=== PATIENT | male | born 1940 | race Caucasian/White ===

== ENCOUNTER → 2023-10-09 12:49 | Outpatient (REF) | payer OTHER, SELFPAY | LOC: HWRAD 12:49 | PROVIDERS: ATTENDING PHYSICIAN Family Medicine | DX: R05.3 Chronic cough (principal) | CPT/HCPCS: 71046 ==

== ENCOUNTER 2023-11-01 21:06 | Inpatient (IN) | payer OTHER, SELFPAY ==
[2023-11-01] VITALS (10 sets, daily range): BP systolic 127–207; BP diastolic 76–131; BMI 19.4
[2023-11-01 16:00] LABS: Glucose - Point of Care 177 mg/dl (70-99)
--- NOTE | 2023-11-01 16:22 | ED.GENMED ---
History of Present Illness
General
Chief Complaint: Weakness
Source: patient, family and ambulance crew
Exam Limitations: none
Time Seen by Provider: 11/01/23 16:03
Nursing documentation reviewed up to this point in time: agreed with
History of Present Illness
History of Present Illness:
83-year-old male with past medical history of hypertension kidney disease, diabetes presenting to the emergency department today with concerns of an unwitnessed fall earlier today. He claims that he may have lost his balance fell to the ground
denies any specific trauma unable to get up and called EMS. They found to have his sugar level in the 30s was given glucagon and oral glucose with improving sugar levels to the 130s. At this point he claims he has been somewhat fatigue over the
last few days denies any specific symptoms. Specifically denies any chest pain shortness of breath nausea vomiting focal numbness weakness. He claims that he has been eating less than usual
Past History
Past History
ED Past Medical History: HTN, Hypercholesterolemia and NIDDM
ED Past Surgical History: Cardiac
Social History
Tobacco: Non-smoker
Alcohol: None
Drug: None
Personal:
Living: with family
Employment: Retired
Family History
Family History: Other (Noncontributory)
Review of Systems
Review of Systems
Allergies reviewed?: Yes
All Other Systems: ROS reviewed and negative except as documented in HPI and ROS
Phy Exam
Physical Exam
Physical Exam:
GENERAL: Alert , in no apparent distress
EYE: pupils equal and reactive
NECK: Supple, no significant adenopathy.
ENT: o/p clr, mmm.
CARDIAC: Regular rate and rhythm .
LUNGS: Clear breath sounds bilaterally, no acute respiratory distress, no wheezes/rales/rhonchi
ABDOMEN: Soft, without focal tenderness, no r/g, no cvat
NEUROLOGICAL: Alert and oriented, no focal neuro deficits
SKIN: Warm and dry, skin intact.
MUSCULOSKELETAL: No edema, well perfused.
PSYCH: Normal and appropriate interaction.
Course
Orders/Labs/Results
Orders:
Orders
11/01/23 16:04
EKG [Electrocardiogram (*1)] Urgent
Reason for Study: Fatigue / Weakness
EKG- Treatment ONCE
11/01/23 16:08
CT Head W/o Iv Contrast Urgent
Comment:
Reason For Exam: fall
11/01/23 16:09
CBC/With Diff [Complete Blood Count/With Diff] Urgent
Lactic Acid Urgent
11/01/23 16:18
Urinalysis Reflex To Culture Urgent
Date Specimen was Collected: 11/01/23
Time Specimen was Collected: 16:16
Urine Microscopic Reflex Cult Urgent
Chest [CR Chest - 2 Views ] Urgent
Comment:
Reason For Exam: cough
11/01/23 17:24
Comprehensive Metabolic Panel Urgent
Creatine Phosphokinase Urgent
TSH Reflex To Free T4 Urgent
Troponin I Urgent
Vitamin D, 25-Oh Urgent
11/01/23 17:54
EKG [Electrocardiogram (*1)] Urgent
Reason for Study: Fatigue / Weakness
EKG- Treatment ONCE
Glucose Urgent
11/01/23 18:00
Dextrose 5%/0.9%Sodchl 1000 ml [D5/0.9% Sodium Chloride] 1,000 ml IV 1,000 mls/hr
11/01/23 18:03
Add On- LAB Urgent
Tests Added?: parathyroid hormone, vitamin d, ionized Calcium
11/01/23 19:00
Pamidronate Disodium [Aredia] 30 mg 0.9% Sodium Chloride 250 ml [Nss] 250 ml IV ONCE
Abnormal Lab Results
11/01/23 11/01/23 11/01/23
15:59 16:09 16:18
WBC 16.4 H 10^3/uL
(4.8-10.8)
RDW 15.2 H %
(11.5-14.5)
Plt Count 574 H 10^3/uL
(130-400)
Abs Immat Gran (auto) 0.2 H 10^3/uL
(0-0.05)
Absolute Neuts (auto) 14.4 H 10^3/uL
(1.4-6.5)
Absolute Lymphs (auto) 0.6 L 10^3/uL
(1.2-3.4)
Absolute Monos (auto) 1.3 H 10^3/uL
(0.1-0.6)
Immature Gran % 1.0 H %
(0-0.5)
Neutrophils % 87.5 H %
(42.2-75.2)
Lymphocytes % 3.3 L %
(20.5-51.1)
BUN
Creatinine
Calcium
Total Bilirubin
AST
ALT
Creatine Kinase
Albumin
Ur Occult Blood Reflex 3+ A
(Negative)
Urine RBC 26-30 A /HPF
(0-2)
Urine Albumin (Reflex) 1+ A
(Neg - Trace)
POC Glucose 177 H mg/dl
(70-99)
24
17:24
WBC
RDW
Plt Count
Abs Immat Gran (auto)
Absolute Neuts (auto)
Absolute Lymphs (auto)
Absolute Monos (auto)
Immature Gran %
Neutrophils %
Lymphocytes %
BUN 53 H mg/dl
(9-20)
Creatinine 1.8 H mg/dL
(0.7-1.3)
Calcium 15.2 H* mg/dl
(8.4-10.2)
Total Bilirubin 1.4 H mg/dl
(0.2-1.3)
AST 93 H U/L
(17-59)
ALT 52 H U/L
(0-50)
Creatine Kinase 252 H U/L
(55-170)
Albumin 3.4 L g/dl
(3.5-5.0)
Ur Occult Blood Reflex
Urine RBC
Urine Albumin (Reflex)
POC Glucose
11/01/23 16:09
Vital Signs
Initial and Last Documented VS:
Initial Vital Signs
Resp Pulse Ox
14 97
11/01/23 15:59 11/01/23 15:59
Last Documented Vital Signs
Temp Pulse Resp BP Pulse Ox
96.5 F L 56 20 184/76 96
11/01/23 16:06 11/01/23 18:15 11/01/23 18:15 11/01/23 18:08 11/01/23 18:15
MDM/Problems Addressed
MDM/Problems Addressed:
84-year-old male presenting to the emergency department today with concerns of fall in our prior to arrival found to have a low sugar level at time of EMS arrival and was given sugar with improving numbers. Upon arrival here sugar level in the
170s. Patient denies any specific concerns at this time other than fatigue and weakness. Labs resulting with elevated white blood cell count additionally significantly elevated calcium level 15.2 creatinine is slightly above baseline 1.8 and BUN
of 53. Patient started on fluids to help manage the hypercalcemia Case was also discussed with nephrology that recommended taking pamidronate. Otherwise patient will be admitted for further monitoring and assessment.
*Critical Care Note
Total Time (30-74mins, 75-104mins- exclusive of procedures): Not Applicable
ED Attending Note
-
Portions of this chart may have been created with voice recognition software.� Occasional wrong word or��sound alike� substitutions may have occurred due to the inherent limitations of voice recognition software.
Discharge Plan
Departure
Patient Disposition: Admit
Date of Disposition: 11/01/23
Time of Disposition: 18:33
Admit to: Telemetry
Admit to doctor: Yasminey
Presentation/result/management discussed w/ accepting MD/DO: Hospitalist
Patient with high blood pressure during this ER visit?: No
Condition: Good
Covid-19: Not Applicable
Discharge Problem:
Hypercalcemia
Prescriptions:
No Action
atorvastatin 80 MG tablet
80 mg PO DAILY
glipizide 5 MG tablet
5 mg PO DAILY
ezetimibe 10 MG tablet
10 mg PO DAILY
nifedipine 90 MG tablet extended release
90 mg PO DAILY
atenolol [Tenormin] 100 MG tablet
100 mg PO DAILY
aspirin 81 MG tablet,delayed release (DR/EC)
81 mg PO DAILY
multivitamin with folic acid [Tab-A-Inga] 1 TABLET tablet
1 tab PO DAILY
losartan [Cozaar] 100 MG tablet
100 mg PO DAILY
PreserVision AREDS 1 CAP capsule
2 cap PO DAILY
cyanocobalamin (vitamin B-12) 1,000 MCG tablet
1,000 mcg PO DAILY
pantoprazole 40 MG tablet,delayed release (DR/EC)
40 mg PO DAILY
Referrals:
Debbie Jorge MD [Family Provider] -
Interventions
Interventions:
*Risk Screen - Suicide Last Done: 11/01/23 16:28
*General Assessment Last Done: 11/01/23 16:28
*Neglect/Abuse Screening Last Done: 11/01/23 16:28
ED- Cardiac Assessment Last Done: 11/01/23 16:24
ED- Neurological Assessment Last Done: 11/01/23 16:24
ED- Pulmonary Assessment Last Done: 11/01/23 16:30
Discharge Date and Time
Print Language: SERBIAN
[2023-11-01 16:25] LABS: % Basophils 0.4 % (0-2); % Eosinophils 0.2 % (0-6); % Lymphocytes 3.3 % (20.5-51.1); % Monocytes 7.6 % (1.7-9.3); % Neutrophils 87.5 % (42.2-75.2); Absolute Basophils 0.1 10^3/uL (0-0.2); Absolute Immature Granulocytes 0.2 10^3/uL (0-0.05); Absolute Lymphocytes 0.6 10^3/uL (1.2-3.4); Absolute Monocytes 1.3 10^3/uL (0.1-0.6); Absolute Neutrophils 14.4 10^3/uL (1.4-6.5); Hematocrit 48.6 % (39.0-52.0); Mean Corpuscular Hgb 28.1 pg (27.0-31.0); Mean Corpuscular Volume 80.3 fL (80.0-94.0); Mean Platelet Volume 10.4 fL (7.4-10.4); Nucleated Red Blood Cells % 0 % (-); Platelet Count 574 10^3/uL (130-400); Red Blood Cell Count 6.05 10^6/uL (4.70-6.10); Red Cell Dist. Width 15.2 % (11.5-14.5); White Blood Cell Count 16.4 10^3/uL (4.8-10.8)
[2023-11-01 16:26] LABS: Urine Albumin 1+ (Neg - Trace); Urine Bilirubin Negative (Negative); Urine Character Clear (Clear); Urine Color Yellow; Urine Glucose Negative (Negative); Urine Ketone Negative (Negative); Urine Leukocyte Negative (Negative); Urine Nitrite Negative (Negative); Urine Occult Blood 3+ (Negative); Urine Urobilinogen Negative (Neg - 1+)
[2023-11-01 16:37] LABS: Lactic Acid 1.9 mmol/L (0.7-2.0)
[2023-11-01 17:17] LABS: Urine Red Blood Cell 26-30 /HPF (0-2); Urine White Cell 0-2 /HPF (0-5)
[2023-11-01 17:49] LABS: ALT (SGPT) 52 U/L (0-50); AST (SGOT) 93 U/L (17-59); Albumin 3.4 g/dl (3.5-5.0); Alkaline Phosphatase 89 U/L (38-126); Blood Urea Nitrogen 53 mg/dl (9-20); Carbon Dioxide 26 mmol/L (22-30); Chloride 99 mmol/L (98-107); Creatine Phosphokinase 252 U/L (55-170); Glucose 72 mg/dl (70-99); Potassium 4.1 mmol/L (3.5-5.1); Sodium 136 mmol/L (135-145); Total Bilirubin 1.4 mg/dl (0.2-1.3); Total Protein 7.6 g/dl (6.3-8.2); eGFR 37.12
[2023-11-01 17:57] LABS: Troponin I 0.033 ng/ml
[2023-11-01 17:58] LABS: Calcium 15.2 mg/dl (8.4-10.2)
[2023-11-01 17:59] LABS: Glucose - Point of Care 72 mg/dl (70-99)
[2023-11-01] MEDS: D5/0.9% SODIUM CHLORIDE 1000 IV ×2 (18:06→23:15)
[2023-11-01 18:17] LABS: TSH Reflex To Free T4 0.96 uIU/ml (0.47-4.68)
[2023-11-01 18:51] LABS: Vitamin D, 25-OH*** 50.4 ng/mL (30-80)
[2023-11-01] MEDS: AREDIA 260 MG IV (18:57)
--- NOTE | 2023-11-01 19:56 | HPS.HSE ---
Family Physician
-
Family Physician: Debbie Jorge
Chief Complaint
-
Hypoglycemia
History of Present Illness
This is a 83-year-old male who has a past medical history that is significant for hypertension, hyperlipidemia, type 2 diabetes, CKD stage IV, reflux with Sweeney's esophagus and a history of GI bleeding who presents to the emergency department with
a hypoglycemic episode.
Patient comes from home where he lives by himself independently. At baseline the patient is mobile and can carry on activities of daily living. The daughter reports that she saw him last about 1/2 weeks ago. At that time was complaining of
feeling tired and having some trouble with breathing. It also reported that about 3 months ago was found to be hypercalcemic. He had repeat blood testing which showed persistent hypercalcemia. No medication changes at that time. The patient was
supposed to follow-up with ENT which is pending. However the patient himself reported that over the last 1 week he has had reduced appetite and intake is about half or less of his usual. He denies any diarrhea nausea or vomiting. He denies any
abdominal pain. He reports that he is taking his medications as usual which includes his glipizide despite reduced p.o. intake. Patient apparently had a fall today and was brought to the emergency department was found to be hypoglycemic to a blood
glucose of 30.
In the ED was hypertensive to 180s over 90. Temperature was 98.5, heart rate was 56. ECG shows sinus bradycardia with a 4 degree AV block which is no change from prior. Labs are notable for a white count of 16, hemoglobin of 17 platelet count of
574. Chemistries remarkable for a BUN of 57 creatinine of 1.8. Initial glucose was 30 with repeat at 72. Troponin was negative. TSH was within normal limits. CK was slightly elevated at 252. CT of the head was within normal limits. Chest
x-ray shows no acute infiltrates.
Medical History
Past Medical History
Past Medical History: Reports GERD, HTN, Hypercholesterolemia, NIDDM and Renal Failure
Additional Past Medical History:
AI s/p AVR
Past Surgical History: Reports Cardiac (AVR)
Social History
Tobacco: Non-smoker
Alcohol: Daily (1 can of beer daily)
Drug: None
Personal:
Living: Alone
Employment: Retired
Family History
Family History: Not pertinent
Allergies / Home Medications
Allergies reflects when Allergies were last updated in [facility].
Home Medications with original date entered in [facility]
Allergy/Medication List:
Allergies
Allergy/AdvReac Type Severity Reaction Status Date / Time
No Known Allergies Allergy Verified 11/01/23 17:06
Home Medications
atorvastatin 80 mg tablet 80 mg PO DAILY High cholesterol 07/08/18
ezetimibe 10 mg tablet 10 mg PO DAILY High cholesterol 07/08/18
glipizide 5 mg tablet 5 mg PO DAILY Diabetes 07/08/18
aspirin 81 mg tablet,delayed release 81 mg PO DAILY Blood clot prevention/tx 12/24/18
atenolol 100 mg tablet (Tenormin) 100 mg PO DAILY Blood pressure 12/24/18
multivitamin with folic acid 400 mcg tablet (Tab-A-Inga) 1 tab PO DAILY Supplement 12/24/18
nifedipine 90 mg tablet,extended release 90 mg PO DAILY Blood pressure 12/24/18
losartan 100 mg tablet (Cozaar) 100 mg PO DAILY Blood pressure 06/28/20
vitamins A,C,G-iipn-iiqyhi 4,296 mcg-226 mg-90 mg capsule (PreserVision AREDS) 2 cap PO DAILY Supplement 06/28/20
cyanocobalamin (vitamin B-12) 1,000 mcg tablet 1,000 mcg PO DAILY Supplement 06/29/20
pantoprazole 40 mg tablet,delayed release 40 mg PO DAILY Gastrointestinal issue 06/29/20
Review of Systems
-
History Source: Patient and Family
Constitutional: Reports Weight Loss and Other (loss of appetite)
EENT: Reports No Symptoms
Respiratory: Reports No Symptoms
Cardiac: Reports No Symptoms
Abdomen/GI: Reports No Symptoms
: Reports No Symptoms
Musculoskeletal: Reports No Symptoms
Skin: Reports No Symptoms
Neurological: Reports Weakness
Endocrine: Reports No Symptoms
Hematologic/Lymphatic: Reports No Symptoms
Psych: Reports No Symptoms
Physical Exam
Vital Signs
Vital Signs
Temp Pulse Resp BP Pulse Ox
96.5 F L 56 20 184/76 96
11/01/23 16:06 11/01/23 18:15 11/01/23 18:15 11/01/23 18:08 11/01/23 18:15
Physical Exam
General: No Apparent Distress and Poor Appetite
HEENT: NormoCephalic, Anicteric, Atraumatic and PERRLA
Respiratory: Clear
Cardiac: S1/S2, Regular Rhythm and Bradycardia
Breast: Deferred by me
GI: Soft, Non Tender, Non Distended and Normal Bowel Sounds
Rectal: Deferred by Provider
Genito-urinary: Deferred by me
Musculoskeletal: No Clubbing, No Cyanosis and No Edema
Skin: Warm
Neuro: AO x 3
Hematologic/Lymphatic: No Lymphadenopathy
Psych: Calm
Laboratory Results
-
11/01/23 16:09
Laboratory Results
Lactic Acid 1.9 mmol/L (0.7-2.0) 11/01/23 16:09
Total Bilirubin 1.4 mg/dl (0.2-1.3) H 11/01/23 17:24
AST 93 U/L (17-59) H 11/01/23 17:24
ALT 52 U/L (0-50) H 11/01/23 17:24
Alkaline Phosphatase 89 U/L (38-126) 11/01/23 17:24
Troponin I 0.033 ng/ml 11/01/23 17:24
Data Reviewed
-
Diagnostic Radiology: Image Personally Visualized and interpreted
CT Scan: Report Reviewed by me
Medical Tests (Nuc Med, Echo, EKG etc): Image Personally Visualized and interpreted
Lab Data: Labs Reviewed by me
Old Records: Reviewed
Impression/Plan
-
IMPRESSION:
83-year-old male with multiple comorbidity Kd,, diabetes who comes in with decreased appetite, fatigue and a fall and found to be hypoglycemic and hypocalcemic. No injury related to the fall. Patient alert but had dull sensorium.
Glucose was 30 initially.
PLAN:
1. Hypoglycemia/DMII - Patient on glipizide with decrease po intake and weight loss. Suspect medication induced hypoglycemia in setting of dietary changes.
- holding antiglycemics for now
- fingerstick glucose q 6 hours
- iv fluids with d5 NS till bg > 100, then change to NS
- check a1c
2. Hypercalcemia - Presumably symptomatic hypercalcemia with corrected Ca > 16. He is weak (could be from hypoglycemia) and not eating but denies abdominal pain. Denies kidney stones despite microscopic hematuria. Hypercalcemia first detected 3
months ago so unlikey just due to dehydration. Cr 1.8, higher than prior levels (1.2 in 2020 though fluctuates). Hyper-para vs MM
- IV NS at 100 ml/hr for now
- pamidronate per renal
- calcitonin if calcium rises
- check vit d, pth and pth-rp,
- spep/upep
- renal consulted
3. LESVIA on CKD - pre renal vs mm vs hypercalcemia. Significantly dehydrated. Microscopic hematuria on u/a with 1+ albuminuria
- IV fluids as above
- correct hypercalcemia
- renal u/s
- renal proteinuria quant
3. Hypertension - Uncontrolled hypertension on nifedipine/losartan and atenolol
- change atenolol to bisoprolol for greate bp effect without the corresponding meg
- continue nifedipine and losartan for now
- prn labetolol for SBP > 190
4. Hematuria - Suspect possibly kidney stones but denies symptoms. Cannot rule out lower etiology
- renal u/s also given LESVIA
- repeat u/a with correction of hypercalcemia
DVT PPX - heparin sq
Code Status - Full
[2023-11-01 20:32] LABS: Glucose - Point of Care 94 mg/dl (70-99)
--- NOTE | 2023-11-01 20:37 | W.CON.NEPH ---
Consultation
-
Date/Time Consultation Requested: 11/01/23 1800
Date/Time Consultation Performed: 11/01/232029
Requesting Provider: Dr. Steel
Performing Provider: Dr. Bradshaw
Reason for Consultation: LESVIA, hypercalcemia
Medical History
-
Chief Complaint: fall
History of Present Illness:
This is an 83-year-old gentleman with hypertension typically treated with a multidrug regimen, diabetes mellitus type 2 on oral medications as well as TAVR. For the last few weeks he has had poor appetite as well as as limited intake. He typically
only eats 1 meal per day and does not drink much fluid. Apparently this has worsened over that timeframe. There is no indication as to why his appetite worsened. He denies any issues with bowels or bladder. He does report that he had fallen
several times in the last past few weeks, mostly due to imbalance. He denies any lightheadedness. He has had no issues with his medications and has been compliant with them. He has seen his primary care physician and had complained of some
hoarseness and an x-ray did not disclose any abnormalities. His last meal was last night which consisted of 4 biscuits and a beer by his report. He has only had about 16 ounces of fluid today so far. This morning he had spoken with his daughter "Vandana"Pam and had apparently told her that he had fallen. She had then called 911 and that coming to check on him. He was then brought to the emergency room. Here he had blood work performed which had shown significant hemoconcentration with
hypercalcemia greater than 15 as well as acute kidney injury with a creatinine of 1.5.
Past Medical History
Cholecystectomy, Sweeney's esophagus, reflux, hypertension, hyperlipidemia, CKD 3A, Diazemuls type II, aortic stenosis status post TAVR, macular degeneration, cataract extraction, laser eye surgery
Social History
Tobacco: Former Smoker
Alcohol: Occasional
Family History
Family History: Not Pertinent
Allergies / Home Medications
Allergy/AdvReac Type Severity Reaction Status Date / Time
No Known Allergies Allergy Verified 11/01/23 17:06
�Medication �Instructions �Recorded �Confirmed �Type
atorvastatin 80 mg tablet 80 mg PO DAILY High cholesterol 07/08/18 11/01/23 History
ezetimibe 10 mg tablet 10 mg PO DAILY High cholesterol 07/08/18 11/01/23 History
glipizide 5 mg tablet 5 mg PO DAILY Diabetes 07/08/18 11/01/23 History
aspirin 81 mg tablet,delayed 81 mg PO DAILY Blood clot 12/24/18 11/01/23 History
release prevention/tx
atenolol 100 mg tablet (Tenormin) 100 mg PO DAILY Blood pressure 12/24/18 11/01/23 History
multivitamin with folic acid 400 1 tab PO DAILY Supplement 12/24/18 11/01/23 History
mcg tablet (Tab-A-Inga)
nifedipine 90 mg tablet,extended 90 mg PO DAILY Blood pressure 12/24/18 11/01/23 History
release
losartan 100 mg tablet (Cozaar) 100 mg PO DAILY Blood pressure 06/28/20 11/01/23 History
vitamins A,C,H-vimc-pfkxxc 4,296 2 cap PO DAILY Supplement 06/28/20 11/01/23 History
mcg-226 mg-90 mg capsule
(PreserVision AREDS)
cyanocobalamin (vitamin B-12) 1,000 mcg PO DAILY Supplement 06/29/20 11/01/23 History
1,000 mcg tablet
pantoprazole 40 mg tablet,delayed 40 mg PO DAILY Gastrointestinal 06/29/20 11/01/23 History
release issue
Review of Systems
-
Mild weakness, decreased appetite, no chest pain or shortness of breath, falls.
All other systems: Negative unless noted
Physical Exam
Vital Signs
Vital Signs
Temp Pulse Resp BP Pulse Ox
96.5 F L 56 20 184/76 96
11/01/23 16:06 11/01/23 18:15 11/01/23 18:15 11/01/23 18:08 11/01/23 18:15
Lab Results
WBC 16.4 10^3/uL (4.8-10.8) H 11/01/23 16:09
RBC 6.05 10^6/uL (4.70-6.10) 11/01/23 16:09
Hgb 17.0 g/dL (13.0-18.0) 11/01/23 16:09
Hct 48.6 % (39.0-52.0) 11/01/23 16:09
Plt Count 574 10^3/uL (130-400) H 11/01/23 16:09
Sodium 136 mmol/L (135-145) 11/01/23 17:24
Potassium 4.1 mmol/L (3.5-5.1) 11/01/23 17:24
Chloride 99 mmol/L (98-107) 11/01/23 17:24
Carbon Dioxide 26 mmol/L (22-30) 11/01/23 17:24
BUN 53 mg/dl (9-20) H 11/01/23 17:24
Creatinine 1.8 mg/dL (0.7-1.3) H 11/01/23 17:24
eGFR 37.12 11/01/23 17:24
Calcium 15.2 mg/dl (8.4-10.2) H* 11/01/23 17:24
Albumin 3.4 g/dl (3.5-5.0) L 11/01/23 17:24
On August 28, 2023 creatinine 0.98, calcium 10.4, albumin 4.2
On July 26, 2023 PTH 30, calcium 11.0
On July 23, 2023 urinalysis with 1+ protein no blood
On July 24, 2023 creatinine 1.12, calcium 11.3, albumin 4.2, total protein 8.7
On July 06, 2023 urine microalbumin creatinine ratio 730
On November 27, 2022 calcium 10.3
On May 29, 2022 calcium 10.3
On June 06, 2021 calcium 10.1, PTH 39
On December 13, 2020 calcium 9.8, PTH 133
Physical Exam
Patient is awake alert oriented and in no distress. Mood and affect were pleasant, insight and judgment were fair. some memory issues, but minimal. Pupils are equal round and reactive to light, extraocular movements are intact, sclera were
anicteric. Hearing was normal, ears and nose are intact. Eyes were sunken. Oropharynx was dry. Neck was supple with trachea midline and no thyromegaly. Heart was regular rate and rhythm without rubs. Lower extremities without edema. Lungs were
clear to auscultation bilaterally and with normal excursion. Abdomen was soft, nontender, with normal active bowel sounds, and no hepatosplenomegaly. Skin was without rash and with normal turgor.
Data Reviewed
-
Radiology: Image Personally Visualized and interpreted (CXR today 11/01/23 by my reading with no acute disease)
CT Scan: Report Reviewed by me (CT head 11/01/23 no acute disease)
Medical Tests (Nuc Med, Echo etc): Image Personally Visualized and interpreted (EKG 11/01/23 by my reading with SB, 1AVB)
Labs: Labs Reviewed by me
Old Records: Reviewed
Assessment/Plan
-
Assessment
LESVIA
CKD3a (1.0)
hypercalcemia
DM2
HTN
volume depletion
loss of appetite
falls
TAVR
Plan
He is severely volume depleted.
will bolus 2 L NSS
continue with D5NS 125ml/hr
aredia given 30mg
formal workup for hypercalcemia ordered
He had seen endocrinology in 2021 but did not do the testing and did not have follow up
d/w daughter and son in law and patient
[2023-11-01] MEDS: NSS 1000 IV ×2 (21:09→21:23)
[2023-11-01 22:00] LABS: Glucose 131 mg/dl (70-99)
[2023-11-01 22:13] LABS: Calcium 13.4 mg/dl (8.4-10.2); Phosphorus 3.6 mg/dl (2.5-4.5)
--- NOTE | 2023-11-01 22:30 | PTCARENOTE ---
Pt arrived to unit from ED and was a pullover assist from stretcher into bed. Pt is AAOx3, no complaints of pain, pt oriented to room and call marsh within reach. Bed alarm in place for high fall risk. VS stable on admission.
[2023-11-01] MEDS: D5/0.9% SODIUM CHLORIDE IV ×3 (23:13)
[2023-11-02] VITALS (9 sets, daily range): BP systolic 112–200; BP diastolic 60–89; PULSE 89; O2SAT 96; BMI 19.4
[2023-11-02 00:16] LABS: Glucose - Point of Care 87 mg/dl (70-99)
[2023-11-02] MEDS: HEPARIN 5000 UNITS SC ×4 (00:26→23:34)
[2023-11-02] MEDS: NSS 1000 IV ×2 (00:26→17:06)
[2023-11-02] MEDS: APRESOLINE 5 MG IV ×2 (01:11→04:17)
--- NOTE | 2023-11-02 04:23 | PTCARENOTE ---
BP at 0100 manually 200/58, HR 58. Pt is asymptomatic. PRN IV Hydralazine 5mg given. Repeat BP at 0300 is 182/76, HR 65. House AREA FIELD PERSON Deni notified, 1x IV hydralazine 5mg provided.
[2023-11-02 06:13] LABS: Glucose - Point of Care 47 mg/dl (70-99)
[2023-11-02 06:50] LABS: Glucose - Point of Care 70 mg/dl (70-99)
--- NOTE | 2023-11-02 07:21 | PTCARENOTE ---
Pt's bed alarm went off and this RN found pt sitting at the end of his bed coughing and wheezing. Pt reports feeling very short of breath and feeling 'like I'm choking'. Pt reports that he has been having trouble breathing at home and that 'this
is not new'. O2 is 96% on room air, pt placed on 2L for comfort and is 97% on 2L. House APPLIANCE FIXER Deni notified, orders for PRN Duoneb q4h ordered. Pt's blood sugar at 0600 was 47, pt reported feeling dizzy but no other symptoms. 4 oz orange juice
provided and repeat sugar was 70.
[2023-11-02] MEDS: DUONEB 3 ML INH ×2 (07:26→18:57)
[2023-11-02 07:28] LABS: Glucose - Point of Care 77 mg/dl (70-99)
--- NOTE | 2023-11-02 08:01 | PTCARENOTE ---
Patient was complaining of choking and was coughing to law researcher, and wheezing and was sitting up at bedside when I entered room. Pulse ox shown 70 but rapidly chandana to mid 90 when instructed to breathe through nose and O2 was increased to 6L.
Blood glucose was 77 and patient lungs had bilateral expiratory wheeze, diminished in base with crackles. Respiratory administered a breathing treatment
[2023-11-02] MEDS: ZEBETA 10 MG PO (08:32)
[2023-11-02] MEDS: PROCARDIA XL (EXTENDED RELEASE) 90 MG PO (08:32)
[2023-11-02] MEDS: COZAAR 100 MG PO (08:34)
[2023-11-02] MEDS: ZETIA 10 MG PO (08:34)
[2023-11-02] MEDS: VITAMIN B-12 1000 MCG PO (08:35)
[2023-11-02] MEDS: PROTONIX 40 MG PO (08:35)
[2023-11-02] MEDS: LIPITOR 80 MG PO (08:35)
[2023-11-02] MEDS: ASPIR LOW (ENTERIC COATED) 81 MG PO (08:35)
[2023-11-02] MEDS: D5/0.9% SODIUM CHLORIDE 1000 IV (08:42)
[2023-11-02 08:57] LABS: Glucose - Point of Care 72 mg/dl (70-99)
[2023-11-02 09:41] LABS: Hematocrit 40.7 % (39.0-52.0); Hemoglobin 14.7 g/dL (13.0-18.0); Mean Corp Hgb Conc. 36.1 g/dL (33.0-37.0); Mean Corpuscular Hgb 27.4 pg (27.0-31.0); Mean Corpuscular Volume 75.8 fL (80.0-94.0); Mean Platelet Volume 11.8 fL (7.4-10.4); Platelet Count 264 10^3/uL (130-400); Red Blood Cell Count 5.37 10^6/uL (4.70-6.10); Red Cell Dist. Width 15.4 % (11.5-14.5); White Blood Cell Count 14.4 10^3/uL (4.8-10.8)
--- NOTE | 2023-11-02 09:57 | PTOTSP ---
Speech Therapy Swallowing Assessment
Patient without gross signs of aspiration during bedside assessment, though risk somewhat elevated with current increased work of breathing. Patient reports having episodes of respiratory distress when waking at home for that past several months.
Question if related to known reflux.
Recommend
1. Regular/Easy to Chew Diet and Thin Liquids
2. Meds with liquid as tolerated.
3. Reflux precautions.
4. Spoke with MD and will proceed with VSE to rule out silent aspiration.
[2023-11-02 10:12] LABS: ALT (SGPT) 45 U/L (0-50); AST (SGOT) 80 U/L (17-59); Albumin 3.1 g/dl (3.5-5.0); Alkaline Phosphatase 88 U/L (38-126); Blood Urea Nitrogen 35 mg/dl (9-20); Carbon Dioxide 21 mmol/L (22-30); Chloride 107 mmol/L (98-107); Creatine Phosphokinase 156 U/L (55-170); Direct Bilirubin 0.3 mg/dl (0.0-0.4); Estimated Creatinine Clearance 34 ml/min; Glucose 60 mg/dl (70-99); Potassium 3.4 mmol/L (3.5-5.1); Sodium 138 mmol/L (135-145); Total Bilirubin 1.2 mg/dl (0.2-1.3); eGFR 54.85
[2023-11-02 10:30] LABS: Glucose - Point of Care 141 mg/dl (70-99)
[2023-11-02 11:09] LABS: Glycohemoglobin (HgbA1c) 5.2 % (4.0-5.6)
[2023-11-02 11:50] LABS: Glucose - Point of Care 118 mg/dl (70-99)
--- NOTE | 2023-11-02 11:52 | PTOTSP ---
Video Swallow Examination
Trace transient upper laryngeal penetration with thin liquids during the swallow. No persistent laryngeal penetration or aspiration but risk is elevated due to moderate degree of pharyngeal stasis across trials. Near complete clearance following dry
swallows and/or liquid wash.
Observation of esophagus in lateral view unremarkable.
Recommend
1. IDDSI 6 (soft, bite-sized) and Thin Liquids
2. Dry swallows
3. Meds whole in applesauce.
4. Aspiration and reflux precautions.
5. ST will follow to ensure diet tolerance.
--- NOTE | 2023-11-02 12:59 | W.PN.HOSP.TC ---
Today's Communication/Plan
-
continue IVF, follow up hypercalcemia workup
DC Planning to a SNF
Assessment / Plan
Assessment / Plan
Assessment:
LESVIA on CKD stage 3a
- continue IVF as per Nephrology - follow BMPs
- check Renal/Bladder US
Acute Hypercalcemia, symptomatic with weakness
- s/p Pamidronate
- continue IVF
- hypercalcemia workup is pending
- follow Nephrology recs
Leukocytosis
- no clear evidence of infection, will monitor
- UA clear
- CXR clear
Hypokalemia
- replete prn
Hypoglycemia
Hx of type 2 DM
- in setting of poor oral intake, weight loss and LESVIA while on glipizide sulfonylurea
- continue D5 fluids
- follow accu-checks
- A1c is 5.2%
Essential HTN
- continue Bisoprolol, Nifedipine, Losartan
Hematuria, mild
- repeat UA tomorrow
- check Renal/Bladder US
HLD - on statin/zetia
GERD
Barretts esophagus
- continue PPI
DVT ppx: SC Heparin
Code: Full
Anticipated Discharge: > 48 hours
Subjective/Interval History
-
Date of Service: November 02, 2023
earlier this AM, RN concerned for 'choking' episode
patient seen by ST at bedside and with VSE and started on dysphagia diet
patient denies any new complaints currently.
Objective Data
-
Labs:
Laboratory Results
11/02/23 11/02/23
08:53 08:54
WBC 14.4 H
Hgb 14.7
Hct 40.7
Plt Count 264 D
Sodium 138
Potassium 3.4 L
Chloride 107
Carbon Dioxide 21 L
BUN 35 H
Creatinine 1.3
Glucose 60 L
Calcium 13.0 H
Total Bilirubin 1.2
AST 80 H
ALT 45
Alkaline Phosphatase 88
Vital Signs:
Vital Signs
Temp Pulse Resp BP Pulse Ox
97.5 F 82 16 112/80 100
11/02/23 11:58 11/02/23 11:58 11/02/23 11:58 11/02/23 11:58 11/02/23 11:58
I&O
11/01/23 11/02/23 11/03/23
06:59 06:59 06:59
Intake Total 1120 / 1120
Output Total 1150 / 1150
Balance -30 / -30
Physical Exam
-
General: No Apparent Distress
HEENT: Normocephalic
Respiratory: Negative Wheezes
Cardiac: Regular Rhythm and S1/S2
GI: Soft
Genito-urinary: No Costovertebral Tender
Musculoskeletal: No Edema
Neuro: AO x 3
Hematologic / Lymphatic: No Lymphadenopathy
Psych: Calm
Data Reviewed
-
Total Time Spent with Patient (in minutes): 45
Labs: Labs Reviewed by me
--- NOTE | 2023-11-02 14:32 | W.PN.NEPH.PH ---
Today's Communication / Plan
-
replace k and cont IVF
Assessment/Plan
-
Assessment
LESVIA
CKD3a (1.0)
hypercalcemia
DM2
HTN
volume depletion
loss of appetite
falls
TAVR
Plan
LESVIA-improving cr down to 1.3
suspected prerenal, microhematuria not sure if SC sample, US Pending
hypercalcemia-improving s/p aredia given 30mg 10/31
cont IVF as he still seem dry on exam and negligible intake
pending workup for PTH, para protein w/u
He had seen endocrinology in 2021 but did not do the testing and did not have follow up
BP were high earlier improving with home meds
replace k
mild met acidosis likely cl based IVF-monitor
hypoglycemia improving -remains on D5
d/w daughter and nursing
-
-
Date of Service: November 02, 2023
CC / HPI / ROS
-
Chief Complaint:
LESVIA, hypercalcemia
History of Present Illness:
cr better at 1.3, non oliguric , juan better at 13
BP high but improved with meds
chocking episode this am, now cleared to eat with caution
CXR neg
Review of Systems:
pt not very communicative
offers no complaints
has dry cough
Labs
-
Labs:
WBC 14.4 10^3/uL (4.8-10.8) H 11/02/23 08:53
RBC 5.37 10^6/uL (4.70-6.10) 11/02/23 08:53
Hgb 14.7 g/dL (13.0-18.0) 11/02/23 08:53
Hct 40.7 % (39.0-52.0) 11/02/23 08:53
Plt Count 264 10^3/uL (130-400) D 11/02/23 08:53
Sodium 138 mmol/L (135-145) 11/02/23 08:54
Potassium 3.4 mmol/L (3.5-5.1) L 11/02/23 08:54
Chloride 107 mmol/L (98-107) 11/02/23 08:54
Carbon Dioxide 21 mmol/L (22-30) L 11/02/23 08:54
BUN 35 mg/dl (9-20) H 11/02/23 08:54
Creatinine 1.3 mg/dL (0.7-1.3) 11/02/23 08:54
eGFR 54.85 11/02/23 08:54
Glucose 60 mg/dl (70-99) L 11/02/23 08:54
Calcium 13.0 mg/dl (8.4-10.2) H 11/02/23 08:54
Phosphorus 3.6 mg/dl (2.5-4.5) 11/01/23 21:36
Albumin 3.1 g/dl (3.5-5.0) L 11/02/23 08:54
Physical Exam
-
Vital Signs:
Vital Signs
Temp Pulse Resp BP Pulse Ox
97.5 F 82 16 112/80 100
11/02/23 11:58 11/02/23 11:58 11/02/23 11:58 11/02/23 11:58 11/02/23 11:58
Cardiovascular:: Regular rate and rhythm
Respiratory:: Bilateral: CTA
Lung Excursion:: Abnormal (mouth breathing)
Abdomen:: Nontender
Extremity Edema:: None: Bilateral:
Han Catheter: No
[2023-11-02] MEDS: KCL 270 MEQ IV (15:10)
--- NOTE | 2023-11-02 16:23 | CM ---
Patient seen bedside.
IA completed with patient and daughter Pam.
Patients spouse last year, he lives alone with his cat.
Patient ambulated independently and drives.
Patient lives in a condo, no steps.
PT/OT recommending [facility].
Daughter lives in [place] and would like facilities near there.
TC to [place] to see if OOA, unable to get hold of anyone. (on hold)
Referrals placed to multiple facilities.
PCP: Dr Jorge
Pharmacy: [facility]
Plan: skilled rehab, needs auth.
[2023-11-02 16:36] LABS: Glucose - Point of Care 134 mg/dl (70-99)
[2023-11-03] VITALS (7 sets, daily range): BP systolic 114–190; BP diastolic 49–95; PULSE 62
[2023-11-03 00:32] LABS: Glucose - Point of Care 91 mg/dl (70-99)
[2023-11-03] MEDS: DUONEB 3 ML INH (01:39)
--- NOTE | 2023-11-03 02:10 | PTCARENOTE ---
Pt. continues to be visibly very SOB, ADAMS, restless, 96% 3L 02, neb tx given, notified [facility], ordered stat PCXR, labs, ABG's, will continue to monitor.
[2023-11-03 02:44] LABS: Hematocrit 40.9 % (39.0-52.0); Hemoglobin 14.7 g/dL (13.0-18.0); Mean Corp Hgb Conc. 35.9 g/dL (33.0-37.0); Mean Corpuscular Hgb 28.5 pg (27.0-31.0); Mean Corpuscular Volume 79.4 fL (80.0-94.0); Mean Platelet Volume 10.1 fL (7.4-10.4); Platelet Count 508 10^3/uL (130-400); Red Blood Cell Count 5.15 10^6/uL (4.70-6.10); Red Cell Dist. Width 15.2 % (11.5-14.5); White Blood Cell Count 22.6 10^3/uL (4.8-10.8)
--- NOTE | 2023-11-03 02:46 | W.PN.UPDATE ---
Update Note
Progress Note Update
Patient complained of SOB, Patient is 96% on 3L of O2. Duo nebs PRN was given to the patient. On exam, Patient seems uncomfortable has difficult breathing. No Wheezing or crackle noted on lung exam.
-Chest x-ray, abg, cbc, bmp, mag, D dimer, covid and influenza ordered.
-D Dimer elevated (2.04 ), CT/ PE ordered ----> neg for PE
- BNP 4700 previously 1979-----> one time order of Lasix was given.
-leukocytosis WBC increased from 14.4 to 22.6, Procalcitonin 0.37, Patient afebrile.
Covid and influenza are neg.
UA neg on admission
Chest x-ray result is pending
Blood cultures ordered, result is pending.
-Will start Zosyn for now.
[2023-11-03 02:51] LABS: B.E. -1.6 mmol/L; HCO3 21.5 mmol/L (21-28); O2 Saturation % 98.3 % (94-98); PCO2 31 mmHg (35-48); PO2 84 mmHg (83-108); pH 7.45 (7.35-7.45)
[2023-11-03 02:54] LABS: Magnesium 1.4 mg/dl (1.6-2.3)
[2023-11-03 02:55] LABS: ALT (SGPT) 53 U/L (0-50); AST (SGOT) 84 U/L (17-59); Albumin 3.2 g/dl (3.5-5.0); Alkaline Phosphatase 105 U/L (38-126); Blood Urea Nitrogen 26 mg/dl (9-20); Calcium 12.1 mg/dl (8.4-10.2); Carbon Dioxide 20 mmol/L (22-30); Chloride 107 mmol/L (98-107); Estimated Creatinine Clearance 37 ml/min; Glucose 91 mg/dl (70-99); Potassium 3.7 mmol/L (3.5-5.1); Sodium 139 mmol/L (135-145); Total Bilirubin 1.3 mg/dl (0.2-1.3); Total Protein 7.3 g/dl (6.3-8.2); eGFR > 60.00
[2023-11-03 03:05] LABS: NT-proBNP 4700 pg/ml
[2023-11-03 03:19] LABS: COVID-19 Antigen Negative (Negative)
[2023-11-03] MEDS: MAGNESIUM SULFATE 50 IV ×2 (03:48→12:19)
[2023-11-03] MEDS: LASIX 20 MG IV (03:55)
[2023-11-03 04:06] LABS: Procalcitonin 0.37 ng/ml (0.0-0.25)
[2023-11-03 04:10] LABS: D-Dimer 2.04 ug/mlFEU (0.00-0.50)
[2023-11-03 06:16] LABS: Glucose - Point of Care 92 mg/dl (70-99)
[2023-11-03] MEDS: PROCARDIA XL (EXTENDED RELEASE) 90 MG PO (08:51)
[2023-11-03] MEDS: ZETIA 10 MG PO (08:51)
[2023-11-03] MEDS: ASPIR LOW (ENTERIC COATED) 81 MG PO (08:51)
[2023-11-03] MEDS: COZAAR 100 MG PO (08:51)
[2023-11-03] MEDS: LIPITOR 80 MG PO (08:52)
[2023-11-03] MEDS: VITAMIN B-12 1000 MCG PO (08:52)
[2023-11-03] MEDS: HEPARIN 5000 UNITS SC ×2 (08:52→16:33)
[2023-11-03] MEDS: PROTONIX 40 MG PO (08:52)
[2023-11-03] MEDS: ZEBETA 10 MG PO (08:52)
[2023-11-03] MEDS: ZOSYN 50 IV ×3 (08:53→20:41)
--- NOTE | 2023-11-03 11:01 | W.PN.HOSP.TC ---
Today's Communication/Plan
-
cap IVF
continue IV Zosyn, wean O2, dysphagia diet
d/w Renal, perhaps redose Aredia for ongoing hypercalcemia management, pending workup
Assessment / Plan
Assessment / Plan
Assessment:
LESVIA on CKD stage 3a
- Renal US negative
- cap IVF pending Nephrology review.
- follow BMPs
Acute Hypercalcemia, symptomatic with weakness
- s/p Pamidronate
- cap IVF pending Nephrology review.
- hypercalcemia workup is pending
- follow Nephrology recs
- may need redose of Pamidronate
Leukocytosis, suspected aspiration pneumonia
- CT chest: Posterior bibasilar patchy and confluent posterior bibasilar airspace opacity and interstitial thickening. Posterior bibasilar atelectasis versus pneumonia. Peribronchial thickening. Mucous plugging.
- continue IV Zosyn, day 1
- ST eval: IDDSI 6
Acute hypoxic respiratory insufficiency on 4L NC
- wean O2 as able
Elevated BNP, possible acute CHF from volume overload
- necessary IVF for Ca treatment
- s/p IV Lasix 1 dose
- IVF capped for now
Hypokalemia
- replete prn
Hypoglycemia
Hx of type 2 DM
- in setting of poor oral intake, weight loss and LESVIA while on glipizide sulfonylurea
- encourage oral intake
- follow accu-checks
- A1c is 5.2%
Essential HTN
- continue Bisoprolol, Nifedipine, Losartan
Hematuria, mild
- Renal US negative
- repeat UA
HLD - on statin/zetia
GERD
Barretts esophagus
- continue PPI
Hypomagnesemia
- replete via IV
DVT ppx: SC Heparin
Code: Full
Anticipated Discharge: > 48 hours
Subjective/Interval History
-
Date of Service: November 03, 2023
overnight events reviewed, patient more SOB, more O2 needs
started on IV abx for aspiration concerns (post choking episode in AM)
Objective Data
-
Labs:
Laboratory Results
11/03/23 11/03/23
02:19 02:21
WBC 22.6 H
Hgb 14.7
Hct 40.9
Plt Count 508 H D
HCO3 21.5
Sodium 139
Potassium 3.7
Chloride 107
Carbon Dioxide 20 L
BUN 26 H
Creatinine 1.2
Glucose 91
Calcium 12.1 H
Total Bilirubin 1.3
AST 84 H
ALT 53 H
Alkaline Phosphatase 105
Vital Signs:
Vital Signs
Temp Pulse Resp BP Pulse Ox
98 F 86 24 155/95 96
11/03/23 07:20 11/03/23 07:20 11/03/23 07:20 11/03/23 07:20 11/03/23 07:20
I&O
11/02/23 11/03/23 11/04/23
06:59 06:59 06:59
Intake Total 1120 / 1120 1090 / 1090
Output Total 1150 / 1150 550 / 550
Balance -30 / -30 540 / 540
Physical Exam
-
General: No Apparent Distress
HEENT: Normocephalic and Atraumatic
Respiratory: Rhonchi; Negative Wheezes
Cardiac: Regular Rhythm
GI: Soft
Musculoskeletal: No Edema
Neuro: AO x 3
Psych: Calm
Data Reviewed
-
Total Time Spent with Patient (in minutes): 45
Labs: Labs Reviewed by me
[2023-11-03 11:59] LABS: Glucose - Point of Care 215 mg/dl (70-99)
[2023-11-03 14:31] LABS: Urine Albumin 1+ (Neg - Trace); Urine Bilirubin Negative (Negative); Urine Character Clear (Clear); Urine Color Yellow; Urine Glucose Negative (Negative); Urine Ketone Negative (Negative); Urine Leukocyte Trace (Negative); Urine Nitrite Negative (Negative); Urine Occult Blood 1+ (Negative); Urine Urobilinogen Negative (Neg - 1+)
[2023-11-03 14:42] LABS: Urine White Cell 0-2 /HPF (0-5)
--- NOTE | 2023-11-03 15:16 | W.PN.NEPH.PH ---
Today's Communication / Plan
-
remains off IVF, follow labs
wean O2 as possible, prn lasix
Assessment/Plan
-
Assessment
LESVIA
CKD3a (1.0)
hypercalcemia
DM2
HTN
volume depletion
loss of appetite
falls
TAVR
Plan
LESVIA-improving cr down to 1.2
suspected prerenal, microhematuria, US non acute
hypercalcemia-improving s/p aredia given 30mg on 10/31
pending workup for PTH, para protein w/u, was supposed to see Endo out pt-[employer]
ok to hold IVF with concern of mild hypervolemia and s/p lasix overnight
BNP high and echo noted with normal EF, mod MS, mild increase gradient of bioprosthetic Aortic valve
if no improvement consider cards consult
CT chest showed no PE, on abx for asp PNA
BP were high earlier improving with home meds,
seem to high night to morning, could add additional procardia if needed
mild met acidosis, stable -monitor
replace mg
d/w daughter and pt
-
-
Date of Service: November 03, 2023
CC / HPI / ROS
-
Chief Complaint:
LESVIA, hypercalcemia
History of Present Illness:
cr better at 1.2, non oliguric , juan better at 12.1 uncorrected
BP high overnight but improved with meds
no fever, WBC up at 22k
mg low 1.4
Review of Systems:
feels fine, no cp or sob
on 4lit of O2
able to drink , family being cautious
offers no complaints
Labs
-
Labs:
WBC 22.6 10^3/uL (4.8-10.8) H 11/03/23 02:21
RBC 5.15 10^6/uL (4.70-6.10) 11/03/23 02:21
Hgb 14.7 g/dL (13.0-18.0) 11/03/23 02:21
Hct 40.9 % (39.0-52.0) 11/03/23 02:21
Plt Count 508 10^3/uL (130-400) H D 11/03/23 02:21
Sodium 139 mmol/L (135-145) 11/03/23 02:21
Potassium 3.7 mmol/L (3.5-5.1) 11/03/23 02:21
Chloride 107 mmol/L (98-107) 11/03/23 02:21
Carbon Dioxide 20 mmol/L (22-30) L 11/03/23 02:21
BUN 26 mg/dl (9-20) H 11/03/23 02:21
Creatinine 1.2 mg/dL (0.7-1.3) 11/03/23 02:21
eGFR > 60.00 11/03/23 02:21
Glucose 91 mg/dl (70-99) 11/03/23 02:21
Calcium 12.1 mg/dl (8.4-10.2) H 11/03/23 02:21
Phosphorus 3.6 mg/dl (2.5-4.5) 11/01/23 21:36
Vfa-K-Snlunmqcgkr Pept 4700 pg/ml 11/03/23 02:21
Albumin 3.2 g/dl (3.5-5.0) L 11/03/23 02:21
Physical Exam
-
Vital Signs:
Vital Signs
Temp Pulse Resp BP Pulse Ox
98.2 F 67 24 114/49 93
11/03/23 11:01 11/03/23 11:01 11/03/23 11:01 11/03/23 11:01 11/03/23 11:01
Cardiovascular:: Regular rate and rhythm
Lung Excursion:: Abnormal (decreased)
Abdomen:: Nontender and Soft
Extremity Edema:: None: Bilateral:
Han Catheter: No
[2023-11-03 18:17] LABS: Glucose - Point of Care 182 mg/dl (70-99)
[2023-11-03 21:44] LABS: Glucose - Point of Care 133 mg/dl (70-99)
[2023-11-04] MEDS: HEPARIN 5000 UNITS SC ×4 (00:56→23:56)
[2023-11-04] MEDS: TYLENOL 650 MG PO (00:58)
[2023-11-04] MEDS: ZOSYN 50 IV ×4 (01:00→20:04)
[2023-11-04 03:20] VITALS: BP 152/69
[2023-11-04 07:00] VITALS: BP 170/77
[2023-11-04 07:03] LABS: Hematocrit 33.6 % (39.0-52.0); Hemoglobin 11.9 g/dL (13.0-18.0); Mean Corp Hgb Conc. 35.4 g/dL (33.0-37.0); Mean Corpuscular Hgb 27.4 pg (27.0-31.0); Mean Corpuscular Volume 77.2 fL (80.0-94.0); Mean Platelet Volume 10.8 fL (7.4-10.4); Platelet Count 463 10^3/uL (130-400); Red Blood Cell Count 4.35 10^6/uL (4.70-6.10); Red Cell Dist. Width 15.4 % (11.5-14.5); White Blood Cell Count 23.7 10^3/uL (4.8-10.8)
[2023-11-04 07:28] LABS: ALT (SGPT) 59 U/L (0-50); AST (SGOT) 85 U/L (17-59); Albumin 2.7 g/dl (3.5-5.0); Alkaline Phosphatase 95 U/L (38-126); Blood Urea Nitrogen 29 mg/dl (9-20); Carbon Dioxide 20 mmol/L (22-30); Chloride 103 mmol/L (98-107); Estimated Creatinine Clearance 27 ml/min; Glucose 92 mg/dl (70-99); Potassium 3.3 mmol/L (3.5-5.1); Sodium 135 mmol/L (135-145); Total Bilirubin 1.3 mg/dl (0.2-1.3); Total Protein 6.5 g/dl (6.3-8.2); eGFR 42.75
[2023-11-04 07:41] LABS: Glucose - Point of Care 93 mg/dl (70-99)
[2023-11-04] MEDS: NOVOLOG FLEXPEN-LOW RESISTANCE SC (07:52)
[2023-11-04 09:08] LABS: Intact PTH 23.3 pg/ml (13.6-85.8)
[2023-11-04 09:12] LABS: Magnesium 2.4 mg/dl (1.6-2.3)
[2023-11-04] MEDS: LIPITOR 80 MG PO (09:30)
[2023-11-04] MEDS: PROCARDIA XL (EXTENDED RELEASE) 90 MG PO (09:31)
[2023-11-04] MEDS: ASPIR LOW (ENTERIC COATED) 81 MG PO (09:31)
[2023-11-04] MEDS: VITAMIN B-12 1000 MCG PO (09:31)
[2023-11-04] MEDS: ZETIA 10 MG PO (09:31)
[2023-11-04] MEDS: PROTONIX 40 MG PO (09:32)
[2023-11-04] MEDS: ZEBETA 10 MG PO (09:32)
[2023-11-04] MEDS: COZAAR PO (09:39)
[2023-11-04] MEDS: DUONEB 3 ML INH (10:56)
[2023-11-04 11:00] VITALS: BP 102/46; BP 140/89
[2023-11-04 11:56] LABS: Glucose - Point of Care 235 mg/dl (70-99)
[2023-11-04] MEDS: NOVOLOG FLEXPEN-LOW RESISTANCE 2 UNITS SC (12:34)
--- NOTE | 2023-11-04 13:45 | W.PN.NEPH.PH ---
Today's Communication / Plan
-
follow labs
Assessment/Plan
-
Assessment
LESVIA
CKD3a (1.0)
hypercalcemia
DM2
HTN
volume depletion
loss of appetite
falls
TAVR
Plan
LESVIA-cr better to 1.2 but up again to 1.6 likely post contrast 11/02, hold ARB
Has microhematuria, US non acute, if cr increases further may need serologies
hypercalcemia-improving s/p aredia given 30mg on 10/31
low normal PTH, normal vit D, pending PTHrP, para protein w/u
no IVF since recent resp failure and requiring lasix
BNP was high and echo noted with normal EF, mod MS, mild increase gradient of bioprosthetic Aortic valve
on abx for asp PNA
BP were high earlier improving with home meds, avoid hypotension
mild met acidosis, stable -monitor
replace k
d/w daughter and pt
-
-
Date of Service: November 04, 2023
CC / HPI / ROS
-
Chief Complaint:
LESVIA, hypercalcemia
History of Present Illness:
cr up at 1.6, UOP not measured accurately , juan better at 11 uncorrected
BP improved with meds
no fever, WBC up at 23.7k
mg low 1.4
Review of Systems:
feels fine, no cp
on RA, sob still but improving
no dysuria
offers no other complaints
Labs
-
Labs:
WBC 23.7 10^3/uL (4.8-10.8) H 11/04/23 04:50
RBC 4.35 10^6/uL (4.70-6.10) L 11/04/23 04:50
Hgb 11.9 g/dL (13.0-18.0) L 11/04/23 04:50
Hct 33.6 % (39.0-52.0) L 11/04/23 04:50
Plt Count 463 10^3/uL (130-400) H 11/04/23 04:50
Sodium 135 mmol/L (135-145) 11/04/23 04:50
Potassium 3.3 mmol/L (3.5-5.1) L 11/04/23 04:50
Chloride 103 mmol/L (98-107) 11/04/23 04:50
Carbon Dioxide 20 mmol/L (22-30) L 11/04/23 04:50
BUN 29 mg/dl (9-20) H 11/04/23 04:50
Creatinine 1.6 mg/dL (0.7-1.3) H 11/04/23 04:50
eGFR 42.75 11/04/23 04:50
Glucose 92 mg/dl (70-99) 11/04/23 04:50
Calcium 11.0 mg/dl (8.4-10.2) H 11/04/23 04:50
Phosphorus 3.6 mg/dl (2.5-4.5) 11/01/23 21:36
Jgm-U-Vyekahuhjtw Pept 4700 pg/ml 11/03/23 02:21
Albumin 2.7 g/dl (3.5-5.0) L 11/04/23 04:50
Physical Exam
-
Vital Signs:
Vital Signs
Temp Pulse Resp BP Pulse Ox
98.0 F 65 18 102/46 96
11/04/23 11:00 11/04/23 11:00 11/04/23 11:00 11/04/23 11:00 11/04/23 11:00
Cardiovascular:: Regular rate and rhythm
Respiratory:: Bilateral: Coarse
Lung Excursion:: Normal
Abdomen:: Nontender and Soft
Extremity Edema:: None: Bilateral:
Han Catheter: No
--- NOTE | 2023-11-04 14:13 | W.PN.HOSP.TC ---
Today's Communication/Plan
-
follow hypercalcemia workup
continue IV ZOsyn, mucous clearance measures
PT/OT
Assessment / Plan
Assessment / Plan
Assessment:
LESVIA on CKD stage 3a
- initially dehydrated and improved
- now rising due to contrast from PE study
- monitor BMP
- Renal US negative
- follow Nephrology recs
Acute Hypercalcemia, symptomatic with weakness
- s/p Pamidronate
- s/p IVF course
- hypercalcemia workup is pending, but Vit D and PTH normal
- follow Nephrology recs
Leukocytosis, suspected aspiration pneumonia
- CT chest: Posterior bibasilar patchy and confluent posterior bibasilar airspace opacity and interstitial thickening. Posterior bibasilar atelectasis versus pneumonia. Peribronchial thickening. Mucous plugging.
- continue IV Zosyn, day 2
- ST eval: IDDSI 6
- mucolytics and Mucinex, nasal spray added
Acute hypoxic respiratory insufficiency on 4L NC
- weaned to RA and doing ok
Elevated BNP, possible acute CHF from volume overload
- from necessary IVF for Ca treatment
- s/p IV Lasix 1 dose
- IVF capped
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
Hypokalemia
- replete prn
Hypoglycemia
Hx of type 2 DM
- in setting of poor oral intake, weight loss and LESVIA while on glipizide sulfonylurea
- encourage oral intake
- follow accu-checks
- A1c is 5.2%
Essential HTN
- continue Bisoprolol, Nifedipine
- Losartan held with LESVIA
Hematuria, mild
- Renal US negative
- repeat UA showing improvement
HLD - on statin/zetia
GERD
Barretts esophagus
- continue PPI
Hypomagnesemia
- repleted
DVT ppx: SC Heparin
Code: Full
Anticipated Discharge: > 48 hours
Subjective/Interval History
-
Date of Service: November 04, 2023
off O2
congested, feels like mucous is stuck, some difficulty breathing earlier
Objective Data
-
Labs:
Laboratory Results
11/04/23
04:50
WBC 23.7 H
Hgb 11.9 L
Hct 33.6 L
Plt Count 463 H
Sodium 135
Potassium 3.3 L
Chloride 103
Carbon Dioxide 20 L
BUN 29 H
Creatinine 1.6 H
Glucose 92
Calcium 11.0 H
Total Bilirubin 1.3
AST 85 H
ALT 59 H
Alkaline Phosphatase 95
Vital Signs:
Vital Signs
Temp Pulse Resp BP Pulse Ox
98.0 F 65 18 102/46 96
11/04/23 11:00 11/04/23 11:00 11/04/23 11:00 11/04/23 11:00 11/04/23 11:00
I&O
11/03/23 11/04/23 11/05/23
06:59 06:59 06:59
Intake Total 1090 / 1090 1130 / 1130
Output Total 550 / 550 250 / 250
Balance 540 / 540 880 / 880
Physical Exam
-
General: No Apparent Distress
HEENT: Normocephalic and Atraumatic
Respiratory: Rhonchi
Cardiac: Regular Rhythm and S1/S2
GI: Soft
Genito-urinary: No Costovertebral Tender
Neuro: AO x 3
Psych: Calm
Data Reviewed
-
Total Time Spent with Patient (in minutes): 41
Labs: Labs Reviewed by me
[2023-11-04] MEDS: KCL 40 MEQ PO (14:27)
[2023-11-04] MEDS: MUCINEX 1200 MG PO ×2 (14:27→20:04)
[2023-11-04 15:12] VITALS: BP 125/58
[2023-11-04 16:34] VITALS: BP 127/58; PULSE 72; O2SAT 97
[2023-11-04 16:49] LABS: Glucose - Point of Care 159 mg/dl (70-99)
[2023-11-04] MEDS: NOVOLOG FLEXPEN-LOW RESISTANCE 1 UNITS SC (16:56)
[2023-11-04 21:15] LABS: Glucose - Point of Care 152 mg/dl (70-99)
[2023-11-04 23:41] VITALS: BP 145/58
[2023-11-05] MEDS: ZOSYN 50 IV ×4 (02:00→19:38)
[2023-11-05 07:42] LABS: Hematocrit 33.5 % (39.0-52.0); Hemoglobin 11.9 g/dL (13.0-18.0); Mean Corp Hgb Conc. 35.5 g/dL (33.0-37.0); Mean Corpuscular Hgb 27.5 pg (27.0-31.0); Mean Corpuscular Volume 77.4 fL (80.0-94.0); Mean Platelet Volume 10.7 fL (7.4-10.4); Platelet Count 491 10^3/uL (130-400); Red Blood Cell Count 4.33 10^6/uL (4.70-6.10); Red Cell Dist. Width 15.5 % (11.5-14.5); White Blood Cell Count 23.7 10^3/uL (4.8-10.8)
[2023-11-05 07:58] LABS: ALT (SGPT) 82 U/L (0-50); AST (SGOT) 106 U/L (17-59); Albumin 2.7 g/dl (3.5-5.0); Alkaline Phosphatase 103 U/L (38-126); Blood Urea Nitrogen 27 mg/dl (9-20); Calcium 10.4 mg/dl (8.4-10.2); Carbon Dioxide 23 mmol/L (22-30); Chloride 102 mmol/L (98-107); Estimated Creatinine Clearance 26 ml/min; Glucose 76 mg/dl (70-99); Potassium 3.5 mmol/L (3.5-5.1); Sodium 134 mmol/L (135-145); Total Bilirubin 1.2 mg/dl (0.2-1.3); Total Protein 6.3 g/dl (6.3-8.2); eGFR 39.75
[2023-11-05 08:00] VITALS: BP 189/85
[2023-11-05 08:03] LABS: Glucose - Point of Care 87 mg/dl (70-99)
[2023-11-05] MEDS: NOVOLOG FLEXPEN-LOW RESISTANCE SC (08:13)
[2023-11-05] MEDS: MUCINEX 1200 MG PO ×2 (08:16→19:38)
[2023-11-05] MEDS: LIPITOR 80 MG PO (08:17)
[2023-11-05] MEDS: PROCARDIA XL (EXTENDED RELEASE) 90 MG PO (08:17)
[2023-11-05] MEDS: PROTONIX 40 MG PO (08:17)
[2023-11-05] MEDS: ZEBETA 10 MG PO (08:18)
[2023-11-05] MEDS: ASPIR LOW (ENTERIC COATED) 81 MG PO (08:18)
[2023-11-05] MEDS: ZETIA 10 MG PO (08:18)
[2023-11-05] MEDS: VITAMIN B-12 1000 MCG PO (08:18)
[2023-11-05] MEDS: HEPARIN 5000 UNITS SC ×2 (08:19→15:33)
--- NOTE | 2023-11-05 10:08 | W.PN.HOSP.TC ---
Today's Communication/Plan
-
see A/P
Assessment / Plan
Assessment / Plan
A/P:
# LESVIA on CKD stage 3a
initially dehydrated, now due to contrast from PE study
hold ARB
monitor BMP, SCr today at 1.7 from baseline 1.2
Renal US negative
follow Nephrology recs
# Acute Hypercalcemia, symptomatic with weakness
s/p Pamidronate
s/p IVF course
hypercalcemia workup started
Vit D and PTH normal
pending PTHrP, para protein
follow Nephrology recs
# Leukocytosis, suspected aspiration pneumonia
CT chest: Posterior bibasilar patchy and confluent posterior bibasilar airspace opacity and interstitial thickening. Posterior bibasilar atelectasis versus pneumonia. Peribronchial thickening. Mucous plugging.
continue IV Zosyn
ST eval: IDDSI 6
mucolytics and Mucinex, nasal spray added
# Acute hypoxic respiratory insufficiency, resolved
weaned from 4L NC to RA
# Elevated BNP, possible acute CHF from volume overload from necessary IVF for Ca treatment
s/p IV Lasix 1 dose
IVF capped
Echo: with normal EF, mod MS, mild increase gradient of bioprosthetic Aortic valve
# Hypokalemia
replete prn
# Hypoglycemia
# Hx of type 2 DM
in setting of poor oral intake, weight loss and LESVIA while on glipizide sulfonylurea
encourage oral intake
follow accu-checks
A1c is 5.2%
# Essential HTN
continue Bisoprolol, Nifedipine
Losartan held with LESVIA
# Hematuria, mild
Renal US negative
repeat UA showing improvement
# HLD - on statin/zetia
# GERD
# Barretts esophagus
continue PPI
# Hypomagnesemia
repleted
DVT ppx: SC Heparin
Code: Full
DW daughter at bedside
total time spent 51 min
Anticipated Discharge: > 48 hours
Subjective/Interval History
-
Date of Service: November 05, 2023
Objective Data
-
Labs:
Laboratory Results
11/05/23
06:15
WBC 23.7 H
Hgb 11.9 L
Hct 33.5 L
Plt Count 491 H
Sodium 134 L
Potassium 3.5
Chloride 102
Carbon Dioxide 23
BUN 27 H
Creatinine 1.7 H
Glucose 76
Calcium 10.4 H
Total Bilirubin 1.2
AST 106 H
ALT 82 H
Alkaline Phosphatase 103
Vital Signs:
Vital Signs
Temp Pulse Resp BP Pulse Ox
36.9 C 87 20 189/85 95
11/05/23 08:00 11/05/23 08:00 11/05/23 08:00 11/05/23 08:00 11/05/23 08:00
I&O
11/04/23 11/05/23 11/06/23
06:59 06:59 06:59
Intake Total 1130 / 1130 880 / 880
Output Total 250 / 250 1650 / 1650
Balance 880 / 880 -770 / -770
Review of Systems
-
All other systems: Reviewed and negative
Physical Exam
-
General: Well Developed, Well Nourished, No Apparent Distress, Comfortable and Appears Chronically Ill
HEENT: Normocephalic and Atraumatic
Respiratory: Non Labored Respirations; Negative Accessory Resp Muscle Use
Cardiac: Regular Rhythm and S1/S2
GI: Soft and Nontender
Neuro: Awake and Alert
Psych: Calm and Intact Judgement/Insight
Data Reviewed
-
CT Scan: Report Reviewed by me
Labs: Labs Reviewed by me
--- NOTE | 2023-11-05 10:47 | W.PN.NEPH.PH ---
Today's Communication / Plan
-
follow BMP
Assessment/Plan
-
Assessment
LESVIA
CKD3a (1.0)
hypercalcemia
DM2
HTN
volume depletion
loss of appetite
falls
TAVR
Plan
follow BMP with CN
calcium improving, mental status improving as well, but safety awareness is low
still on bite sized food by swallow eval
await PTHrP and PEPs
abx for PNA continues
off IVF
-
-
Date of Service: November 05, 2023
CC / HPI / ROS
-
Chief Complaint:
LESVIA, hypercalcemia
History of Present Illness:
cr up at 1.7
Calcium better at 10.4
nonoliguric
BP improved with meds
abx for PNA
Review of Systems:
feels fine, no cp
no SOB
Labs
-
Labs:
WBC 23.7 10^3/uL (4.8-10.8) H 11/05/23 06:15
RBC 4.33 10^6/uL (4.70-6.10) L 11/05/23 06:15
Hgb 11.9 g/dL (13.0-18.0) L 11/05/23 06:15
Hct 33.5 % (39.0-52.0) L 11/05/23 06:15
Plt Count 491 10^3/uL (130-400) H 11/05/23 06:15
Sodium 134 mmol/L (135-145) L 11/05/23 06:15
Potassium 3.5 mmol/L (3.5-5.1) 11/05/23 06:15
Chloride 102 mmol/L (98-107) 11/05/23 06:15
Carbon Dioxide 23 mmol/L (22-30) 11/05/23 06:15
BUN 27 mg/dl (9-20) H 11/05/23 06:15
Creatinine 1.7 mg/dL (0.7-1.3) H 11/05/23 06:15
eGFR 39.75 11/05/23 06:15
Glucose 76 mg/dl (70-99) 11/05/23 06:15
Calcium 10.4 mg/dl (8.4-10.2) H 11/05/23 06:15
Phosphorus 3.6 mg/dl (2.5-4.5) 11/01/23 21:36
Nef-I-Gzrpxoogftl Pept 4700 pg/ml 11/03/23 02:21
Albumin 2.7 g/dl (3.5-5.0) L 11/05/23 06:15
Physical Exam
-
Vital Signs:
Vital Signs
Temp Pulse Resp BP Pulse Ox
98.4 F 87 20 189/85 95
11/05/23 08:00 11/05/23 08:00 11/05/23 08:00 11/05/23 08:00 11/05/23 10:19
--- NOTE | 2023-11-05 11:00 | PTCARENOTE ---
Patient deemed to no longer require medsitter, oriented and compliant with requests to stay in bed. Medsitter removed from room
[2023-11-05 11:35] VITALS: BP 128/60; BP 132/64; PULSE 69; PULSE 77; O2SAT 95
[2023-11-05] MEDS: KCL 40 MEQ PO (11:49)
[2023-11-05 11:50] VITALS: BP 128/60; BP 128/62; PULSE 69; O2SAT 95
[2023-11-05 12:09] LABS: Glucose - Point of Care 177 mg/dl (70-99)
[2023-11-05] MEDS: NOVOLOG FLEXPEN-LOW RESISTANCE 1 UNITS SC ×2 (12:17→17:37)
--- NOTE | 2023-11-05 15:33 | CM ---
Plan is for skilled placement and patient's daughter Pam has selected [facility] in [place], [facility], and [facility], referrals sent to through [facility].
Plan; Skilled placement, patient's daughter is requesting facilities in [place], referrals sent through [facility].
[2023-11-05 16:00] VITALS: BP 113/59
[2023-11-05 17:29] LABS: Glucose - Point of Care 173 mg/dl (70-99)
[2023-11-05 21:42] LABS: Glucose - Point of Care 160 mg/dl (70-99)
[2023-11-05 23:31] VITALS: BP 132/56
[2023-11-06] MEDS: HEPARIN 5000 UNITS SC ×3 (01:12→15:26)
[2023-11-06] MEDS: ZOSYN 50 IV ×4 (02:43→20:31)
[2023-11-06 07:20] VITALS: BP 187/86
[2023-11-06 08:00] LABS: % Basophils 0.7 % (0-2); % Eosinophils 2.2 % (0-6); % Lymphocytes 3.5 % (20.5-51.1); % Neutrophils 83.6 % (42.2-75.2); Absolute Basophils 0.1 10^3/uL (0-0.2); Absolute Eosinophils 0.4 10^3/uL (0-0.7); Absolute Immature Granulocytes 0.2 10^3/uL (0-0.05); Absolute Lymphocytes 0.6 10^3/uL (1.2-3.4); Absolute Monocytes 1.5 10^3/uL (0.1-0.6); Absolute Neutrophils 14.1 10^3/uL (1.4-6.5); Hematocrit 35.4 % (39.0-52.0); Hemoglobin 12.8 g/dL (13.0-18.0); Mean Corp Hgb Conc. 36.2 g/dL (33.0-37.0); Mean Corpuscular Hgb 28.2 pg (27.0-31.0); Mean Platelet Volume 10.2 fL (7.4-10.4); Nucleated Red Blood Cells % 0 % (-); Platelet Count 529 10^3/uL (130-400); Red Blood Cell Count 4.54 10^6/uL (4.70-6.10); Red Cell Dist. Width 15.4 % (11.5-14.5); White Blood Cell Count 16.8 10^3/uL (4.8-10.8)
--- NOTE | 2023-11-06 08:12 | W.PN.HOSP.TC ---
Addendum entered and electronically signed by Lawanda Weldon MD 11/06/23 13:03:
updated daughter on the phone
Original Note:
Today's Communication/Plan
-
see A/P
Assessment / Plan
Assessment / Plan
A/P:
# LESVIA on CKD stage 3a
initially dehydrated, now due to contrast from PE study
hold ARB
monitor BMP, SCr at 1.7 from baseline 1.2
Renal US negative
follow Nephrology recs
# Acute Hypercalcemia, symptomatic with weakness
s/p Pamidronate
s/p IVF course
hypercalcemia workup started
Vit D and PTH normal
pending PTHrP, para protein
follow Nephrology recs
# Leukocytosis, suspected aspiration pneumonia
CT chest: Posterior bibasilar patchy and confluent posterior bibasilar airspace opacity and interstitial thickening. Posterior bibasilar atelectasis versus pneumonia. Peribronchial thickening. Mucous plugging.
continue IV Zosyn
ST eval: IDDSI 6
mucolytics and Mucinex, nasal spray added
# Acute hypoxic respiratory insufficiency, resolved
weaned from 4L NC to RA
# Elevated BNP, possible acute CHF from volume overload from necessary IVF for Ca treatment
s/p IV Lasix 1 dose
IVF capped
Echo: with normal EF, mod MS, mild increase gradient of bioprosthetic Aortic valve
# Hypokalemia
replete prn
# Hypoglycemia
# Hx of type 2 DM
in setting of poor oral intake, weight loss and LESVIA while on glipizide sulfonylurea
encourage oral intake
follow accu-checks
A1c is 5.2%
# Essential HTN
continue Bisoprolol, Nifedipine
Losartan held with LESVIA
# Hematuria, mild
Renal US negative
repeat UA showing improvement
# HLD - on statin/zetia
# GERD
# Barretts esophagus
continue PPI
# Hypomagnesemia
repleted
DVT ppx: SC Heparin
Code: Full
Anticipated Discharge: > 48 hours
Subjective/Interval History
-
Date of Service: November 06, 2023
Objective Data
-
Labs:
Laboratory Results
11/06/23
07:15
WBC 16.8 H
Hgb 12.8 L
Hct 35.4 L
Plt Count 529 H
Sodium Pending
Potassium Pending
Chloride Pending
Carbon Dioxide Pending
BUN Pending
Creatinine Pending
Glucose Pending
Calcium Pending
Total Bilirubin Pending
AST Pending
ALT Pending
Alkaline Phosphatase Pending
Vital Signs:
Vital Signs
Temp Pulse Resp BP Pulse Ox
36.3 C 90 16 132/56 95
11/05/23 23:31 11/05/23 23:31 11/05/23 23:31 11/05/23 23:31 11/05/23 16:00
I&O
11/05/23 11/06/23 11/07/23
06:59 06:59 06:59
Intake Total 880 / 880 480 / 480
Output Total 1650 / 1650 650 / 650
Balance -770 / -770 -170 / -170
Review of Systems
-
All other systems: Reviewed and negative
Physical Exam
-
General: Well Developed, Well Nourished, No Apparent Distress, Comfortable and Appears Chronically Ill
HEENT: Normocephalic and Atraumatic
Respiratory: Non Labored Respirations; Negative Accessory Resp Muscle Use
Cardiac: Regular Rhythm and S1/S2
GI: Soft and Nontender
Neuro: Awake and Alert
Psych: Calm and Intact Judgement/Insight
Data Reviewed
-
CT Scan: Report Reviewed by me
Labs: Labs Reviewed by me
[2023-11-06 08:25] LABS: Glucose - Point of Care 106 mg/dl (70-99)
[2023-11-06 08:31] LABS: ALT (SGPT) 122 U/L (0-50); AST (SGOT) 150 U/L (17-59); Albumin 2.8 g/dl (3.5-5.0); Alkaline Phosphatase 127 U/L (38-126); Blood Urea Nitrogen 26 mg/dl (9-20); Carbon Dioxide 21 mmol/L (22-30); Chloride 104 mmol/L (98-107); Direct Bilirubin 0.4 mg/dl (0.0-0.4); Estimated Creatinine Clearance 26 ml/min; Glucose 97 mg/dl (70-99); Magnesium 1.9 mg/dl (1.6-2.3); Potassium 3.7 mmol/L (3.5-5.1); Sodium 134 mmol/L (135-145); Total Protein 6.7 g/dl (6.3-8.2); eGFR 39.75
[2023-11-06] MEDS: NOVOLOG FLEXPEN-LOW RESISTANCE SC (08:40)
[2023-11-06] MEDS: PROTONIX 40 MG PO (08:41)
[2023-11-06] MEDS: ZEBETA 10 MG PO (08:41)
[2023-11-06] MEDS: MUCINEX 1200 MG PO ×2 (08:42→20:32)
[2023-11-06] MEDS: VITAMIN B-12 1000 MCG PO (08:42)
[2023-11-06] MEDS: PROCARDIA XL (EXTENDED RELEASE) 90 MG PO (08:42)
[2023-11-06] MEDS: ASPIR LOW (ENTERIC COATED) 81 MG PO (08:42)
--- NOTE | 2023-11-06 11:13 | W.PN.NEPH.PH ---
Today's Communication / Plan
-
lasix
Assessment/Plan
-
Assessment
LESVIA
CKD3a (1.0)
hypercalcemia
DM2
HTN
volume depletion
loss of appetite
falls
TAVR
Plan
follow BMP with CN
calcium improving, mental status improving as well, but safety awareness is low
still on bite sized food by swallow eval
await PTHrP and PEPs
abx for PNA continues
no IVF
lasix today
-
-
Date of Service: November 06, 2023
CC / HPI / ROS
-
Chief Complaint:
LESVIA, hypercalcemia
History of Present Illness:
LESVIA/Cr stable at 1.7
Calcium better at 10.0
nonoliguric
BP high
abx for PNA
Review of Systems:
feels fine, no cp
c/o SOB
Labs
-
Labs:
WBC 16.8 10^3/uL (4.8-10.8) H 11/06/23 07:15
RBC 4.54 10^6/uL (4.70-6.10) L 11/06/23 07:15
Hgb 12.8 g/dL (13.0-18.0) L 11/06/23 07:15
Hct 35.4 % (39.0-52.0) L 11/06/23 07:15
Plt Count 529 10^3/uL (130-400) H 11/06/23 07:15
Sodium 134 mmol/L (135-145) L 11/06/23 07:15
Potassium 3.7 mmol/L (3.5-5.1) 11/06/23 07:15
Chloride 104 mmol/L (98-107) 11/06/23 07:15
Carbon Dioxide 21 mmol/L (22-30) L 11/06/23 07:15
BUN 26 mg/dl (9-20) H 11/06/23 07:15
Creatinine 1.7 mg/dL (0.7-1.3) H 11/06/23 07:15
eGFR 39.75 11/06/23 07:15
Glucose 97 mg/dl (70-99) 11/06/23 07:15
Calcium 10.0 mg/dl (8.4-10.2) 11/06/23 07:15
Phosphorus 3.6 mg/dl (2.5-4.5) 11/01/23 21:36
Gvw-D-Jsumljikkrv Pept 4700 pg/ml 11/03/23 02:21
Albumin 2.8 g/dl (3.5-5.0) L 11/06/23 07:15
Physical Exam
-
Vital Signs:
Vital Signs
Temp Pulse Resp BP Pulse Ox
97.5 F 80 17 187/86 97
11/06/23 07:20 11/06/23 08:41 11/06/23 07:20 11/06/23 08:41 11/06/23 07:20
Cardiovascular:: Regular rate and rhythm
Respiratory:: Bilateral: Coarse
Lung Excursion:: Normal
Abdomen:: Nontender and Soft
Bowel Sounds:: Normal
Extremity Edema:: None: Bilateral:
[2023-11-06] MEDS: LASIX 40 MG IV (11:33)
[2023-11-06 12:26] LABS: Glucose - Point of Care 260 mg/dl (70-99)
[2023-11-06] MEDS: NOVOLOG FLEXPEN-LOW RESISTANCE 3 UNITS SC ×2 (12:42→17:40)
--- NOTE | 2023-11-06 15:27 | CM ---
CM placed call to [facility] in [place], [place], spoke with Alee in admissions, unable to accept patient due to insurance. Patient and family seen bedside, discussed no accepting facility at this time. CM reached back out to [facility] to see if any
beds available, awaiting response. Patient requested call to daughter, Pam, to discuss additional referrals to be placed. CM spoke to daughter, Pam, discussed no accepting facility at this time and expanding search. Pam will call patients insurance
to get list of SNF in network. CM will continue to follow for all discharge planning needs.
Plan; SNF once facility found, will need auth.
[2023-11-06 15:30] VITALS: BP 131/74
[2023-11-06 15:50] LABS: PTH Related Peptide LC-MS/MS 15.7 pmol/L (0.0-2.3)
[2023-11-06 16:43] LABS: Glucose - Point of Care 270 mg/dl (70-99)
[2023-11-06 16:47] VITALS: BP 159/73; PULSE 71
[2023-11-06 21:46] LABS: Glucose - Point of Care 195 mg/dl (70-99)
[2023-11-06 22:48] LABS: 24 Hour Urine Total Volume Random mL; Urine Collection Length Random hr; Urine Free Lambda Light Chains 5153.26 mg/L (0.00-3.79)
[2023-11-06 23:12] LABS: IgA 46 mg/dL (68-408); IgG 2766 mg/dL (768-1632); IgM 24 mg/dL (35-263)
[2023-11-06 23:35] VITALS: BP 159/71
[2023-11-07] MEDS: HEPARIN 5000 UNITS SC ×3 (00:50→17:11)
[2023-11-07] MEDS: ZOSYN 50 IV ×4 (00:58→20:36)
[2023-11-07 02:50] LABS: Albumin 3.38 g/dL (3.75-5.01); Alpha 1 Globulin 0.51 g/dL (0.19-0.46); Alpha 2 Globulin 0.89 g/dL (0.48-1.05); Monoclonal Protein 1.95 g/dL (<=0.00); SPEP IFE Reflex IFE Done; Total Protein-Electrophoresis 7.7 g/dL (6.3-8.2)
--- NOTE | 2023-11-07 03:27 | DOWNTIME ---
There was a CoverMyMeds Client Drum Filler Downtime on 11/07/2023 from 0100 to 11/07/2023 at 0300. Downtime documentation of patient's care, including medication administrations, has been reconciled in the electronic record per guidelines. Refer to the
patient's paper chart under the miscellaneous tab to see printed paper medication records and downtime forms.
[2023-11-07 07:00] VITALS: BP 197/83
[2023-11-07 07:19] LABS: Glucose - Point of Care 110 mg/dl (70-99)
[2023-11-07] MEDS: NOVOLOG FLEXPEN-LOW RESISTANCE SC (08:27)
[2023-11-07] MEDS: ZEBETA 10 MG PO (08:43)
[2023-11-07] MEDS: PROTONIX 40 MG PO (08:43)
[2023-11-07] MEDS: MUCINEX 1200 MG PO ×2 (08:44→20:29)
[2023-11-07] MEDS: PROCARDIA XL (EXTENDED RELEASE) 90 MG PO ×2 (08:44→20:29)
[2023-11-07] MEDS: ASPIR LOW (ENTERIC COATED) 81 MG PO (08:45)
[2023-11-07] MEDS: VITAMIN B-12 1000 MCG PO (08:45)
[2023-11-07 08:51] LABS: % Basophils 0.7 % (0-2); % Eosinophils 2.4 % (0-6); % Lymphocytes 3.9 % (20.5-51.1); % Monocytes 8.7 % (1.7-9.3); % Neutrophils 83.3 % (42.2-75.2); Absolute Basophils 0.1 10^3/uL (0-0.2); Absolute Eosinophils 0.4 10^3/uL (0-0.7); Absolute Immature Granulocytes 0.2 10^3/uL (0-0.05); Absolute Lymphocytes 0.7 10^3/uL (1.2-3.4); Absolute Monocytes 1.5 10^3/uL (0.1-0.6); Absolute Neutrophils 14.5 10^3/uL (1.4-6.5); Hematocrit 34.6 % (39.0-52.0); Hemoglobin 12.4 g/dL (13.0-18.0); Mean Corp Hgb Conc. 35.8 g/dL (33.0-37.0); Mean Corpuscular Hgb 28.1 pg (27.0-31.0); Mean Corpuscular Volume 78.3 fL (80.0-94.0); Mean Platelet Volume 10.4 fL (7.4-10.4); Nucleated Red Blood Cells % 0 % (-); Platelet Count 523 10^3/uL (130-400); Red Blood Cell Count 4.42 10^6/uL (4.70-6.10); Red Cell Dist. Width 15.5 % (11.5-14.5); White Blood Cell Count 17.4 10^3/uL (4.8-10.8)
--- NOTE | 2023-11-07 09:10 | W.PN.HOSP.TC ---
Today's Communication/Plan
-
see A/P
Assessment / Plan
Assessment / Plan
A/P:
# LESVIA on CKD stage 3a
initially dehydrated, now due to contrast from PE study
hold ARB
monitor BMP, SCr at 1.7 from baseline 1.2
Renal US negative
follow Nephrology recs
# Acute Hypercalcemia, symptomatic with weakness
s/p Pamidronate
s/p IVF course
Vit D and PTH normal
Noted significantly elevated urine free Lambda light chain at 5000, IgG level high at 2700
renal on board
Consult Onc
# Leukocytosis, suspected aspiration pneumonia
CT chest: Posterior bibasilar patchy and confluent posterior bibasilar airspace opacity and interstitial thickening. Posterior bibasilar atelectasis versus pneumonia. Peribronchial thickening. Mucous plugging.
continue IV Zosyn
ST eval: IDDSI 6
mucolytics and Mucinex, nasal spray added
# Acute hypoxic respiratory insufficiency, resolved
weaned from 4L NC to RA
# Elevated BNP, possible acute CHF from volume overload from necessary IVF for Ca treatment
s/p IV Lasix 1 dose
IVF capped
Echo: with normal EF, mod MS, mild increase gradient of bioprosthetic Aortic valve
# Hypokalemia
replete prn
# Hypoglycemia
# Hx of type 2 DM
in setting of poor oral intake, weight loss and LESVIA while on glipizide sulfonylurea
encourage oral intake
follow accu-checks
A1c is 5.2%
# Essential HTN
continue Bisoprolol, Nifedipine
Losartan held with LESVIA
# Hematuria, mild
Renal US negative
repeat UA showing improvement
# HLD - on statin/zetia
# GERD
# Barretts esophagus
continue PPI
# Hypomagnesemia
repleted
DVT ppx: SC Heparin
Code: Full
DW RN
DW Renal
DW daughter
total time spent 51 min
Anticipated Discharge: > 48 hours
Subjective/Interval History
-
Date of Service: November 07, 2023
Objective Data
-
Labs:
Laboratory Results
11/07/23
07:58
WBC 17.4 H
Hgb 12.4 L
Hct 34.6 L
Plt Count 523 H
Sodium Pending
Potassium Pending
Chloride Pending
Carbon Dioxide Pending
BUN Pending
Creatinine Pending
Glucose Pending
Calcium Pending
Total Bilirubin Pending
AST Pending
ALT Pending
Alkaline Phosphatase Pending
Vital Signs:
Vital Signs
Temp Pulse Resp BP Pulse Ox
37.6 C 90 18 197/83 97
11/07/23 07:00 11/07/23 08:44 11/07/23 07:00 11/07/23 08:44 11/07/23 07:00
I&O
11/06/23 11/07/23 11/08/23
06:59 06:59 06:59
Intake Total 480 / 480 1140 / 1140
Output Total 650 / 650 1350 / 1350
Balance -170 / -170 -210 / -210
Review of Systems
-
All other systems: Reviewed and negative
Physical Exam
-
General: Well Developed, Well Nourished, No Apparent Distress, Comfortable and Appears Chronically Ill
HEENT: Normocephalic and Atraumatic
Respiratory: Non Labored Respirations; Negative Accessory Resp Muscle Use
Cardiac: Regular Rhythm and S1/S2
GI: Soft and Nontender
Neuro: Awake and Alert
Psych: Calm and Intact Judgement/Insight
Data Reviewed
-
CT Scan: Report Reviewed by me
Labs: Labs Reviewed by me, Discussed with Physician and Discussed with Family
--- NOTE | 2023-11-07 09:36 | CON.ONC ---
Documented by User: Anthony Rob DO, Resident 11/07/23 10:39
Impression
Impression
83 YO M with PMH of DM, hypercalcemia, HTN presenting with progressive weakness and falls, with newly diagnosed multiple myeloma
Plan
Plan
Start patient on dexamethasone 40 mg/4 days for MM.
Patient will require BM biopsy prior to any treatment initiation.
follow up OP with office for treatment of MM and bone strengthener
continue to follow Ca levels and treat with Pamidronate if needed
continue all other medical management per primary care team
Patient History
History of Present Illness
Patient is an 83-year-old male with past medical history of hypertension, hypercholesterolemia, renal failure, AI status post AVR, hypercalcemia with concern of new diagnosis of multiple myeloma. Patient was admitted to [facility] after an
episode of hypoglycemia and acute hypercalcemia with weakness. Vitamin D and PTH was normal however significantly elevated urine free lambda light chain was at 5000 and IgG level was elevated at 2700. For the hypercalcemia patient was given
pamidronate and course of IV fluids.
Past-Medical/Surgical History
Past Medical History: Reports GERD, HTN, Hypercholesterolemia, NIDDM and Renal Failure, AI s/p AVR
Past Surgical History: Reports Cardiac (AVR)
Patient Medication
�Medication �Instructions �Recorded �Confirmed �Last Taken �Type
atorvastatin 80 mg tablet 80 mg PO DAILY High cholesterol 07/08/18 11/01/23 11/01/23 History
ezetimibe 10 mg tablet 10 mg PO DAILY High cholesterol 07/08/18 11/01/23 11/01/23 History
glipizide 5 mg tablet 5 mg PO DAILY Diabetes 07/08/18 11/01/23 11/01/23 History
aspirin 81 mg tablet,delayed 81 mg PO DAILY Blood clot 12/24/18 11/01/23 11/01/23 History
release prevention/tx
atenolol 100 mg tablet (Tenormin) 100 mg PO DAILY Blood pressure 11/07/0711/01/23 11/01/23 History
multivitamin with folic acid 400 1 tab PO DAILY Supplement 12/24/18 11/01/23 11/01/23 History
mcg tablet (Tab-A-Inga)
nifedipine 90 mg tablet,extended 90 mg PO DAILY Blood pressure 12/24/18 11/01/23 11/01/23 History
release
losartan 100 mg tablet (Cozaar) 100 mg PO DAILY Blood pressure 06/28/20 11/01/23 11/01/23 History
vitamins A,C,H-qogq-zmnmdj 4,296 2 cap PO DAILY Supplement 06/28/20 11/01/23 11/01/23 History
mcg-226 mg-90 mg capsule
(PreserVision AREDS)
cyanocobalamin (vitamin B-12) 1,000 mcg PO DAILY Supplement 06/29/20 11/01/23 11/01/23 History
1,000 mcg tablet
pantoprazole 40 mg tablet,delayed 40 mg PO DAILY Gastrointestinal 06/29/20 11/01/23 11/01/23 History
release issue
polyethylene glycol 3350 17 gram 17 g PRN Constipation 11/01/23 Unknown History
oral powder packet (Miralax)
Active Medications
Generic Name Dose Route Start Last Admin
Trade Name Freq PRN Reason Stop Dose Admin
Acetaminophen 650 mg 11/01/23 21:51 11/04/23 00:58
Acetaminophen 325 Mg Tablet PO 11/29/23 21:50 650 mg
Q4HPRN PRN Administration
mild pain/LÓPEZ/temp> 100.4F
Albuterol/Ipratropium 3 ml 11/02/23 06:44 11/04/23 10:56
Ipratropium 0.5/Albuterol 3 Mg (3 Ml Ampul) INH 3 ml
R Q4HPRN PRN Administration
sob/wheezes
Protocol
Aspirin 81 mg 11/02/23 08:00 11/07/23 08:45
Aspirin 81 Mg (Enteric Coated) Tablet PO 11/30/23 07:59 81 mg
DAILY CAITLYN Administration
Atorvastatin Calcium 80 mg 11/02/23 08:00 11/05/23 08:17
Atorvastatin (Lipitor) 80 Mg Tablet PO 11/30/23 07:59 80 mg
DAILY CAITLYN Administration
Bisacodyl 10 mg 11/01/23 21:51
Bisacodyl 10 Mg Rectal Suppository RECTAL 11/29/23 21:50
[id number] PRN
constipation
Bisoprolol Fumarate 10 mg 11/02/23 08:00 11/07/23 08:43
Bisoprolol Fumarate (Zebeta) 10 Mg Tablet PO 11/30/23 07:59 10 mg
DAILY CAITLYN Administration
Cyanocobalamin 1,000 mcg 11/02/23 08:00 11/07/23 08:45
Cyanocobalamin 1,000 Mcg Tablet PO 11/30/23 07:59 1,000 mcg
DAILY CAITLYN Administration
Dextrose 12.5 grams 11/03/23 18:34
Dextrose 50% (0.5 Grams/Ml) 50 Ml Syringe IV 12/01/23 18:33
[id number] PRN
hypoglycemia
Protocol
Ezetimibe 10 mg 11/02/23 08:00 11/05/23 08:18
Ezetimibe (Zetia) 10 Mg Tablet PO 11/30/23 07:59 10 mg
DAILY CAITLYN Administration
Glucagon 1 mg 11/03/23 18:34
Glucagon 1 Mg Vial IM 12/01/23 18:33
PRN PRN
hypoglycemia
Protocol
Guaifenesin 1,200 mg 11/04/23 14:15 11/07/23 08:44
Guaifenesin 600 Mg Extended Release Tablet PO 12/02/23 14:14 1,200 mg
Q12 CAITLYN Administration
Heparin Sodium 5,000 units 11/02/23 00:00 11/07/23 08:45
Heparin 5,000 Units/Ml 1 Ml Vial SC 11/30/23 00:00 5,000 units
Q8 CAITLYN Administration
Hydralazine HCl 5 mg 11/01/23 21:51 11/02/23 01:11
Hydralazine 20 Mg/Ml Vial IV 11/29/23 21:50 5 mg
Q4HPRN PRN Administration
SBP > 190
Piperacillin Sod/Tazobactam Sod 2.25 grams in 50 mls @ 100 mls/hr 11/05/23 14:00 11/07/23 08:43
Zosyn IV 11/10/23 13:59 50 mls
Q6H CAITLYN Administration
Insulin Aspart 0 units 11/04/23 07:30 11/07/23 08:27
Insulin Aspart Low Resistance 300 Units/3 Ml Pen.Injctr SC 12/02/23 07:29 Not Given
AC CAITLYN
Protocol
Losartan Potassium 100 mg 11/02/23 08:00 11/04/23 09:39
Losartan 100 Mg Tablet PO 11/30/23 07:59 Not Given
DAILY CAITLYN
Nifedipine 90 mg 11/02/23 08:00 11/07/23 08:44
Nifedipine 30 Mg Extended Release Tablet PO 11/30/23 07:59 90 mg
DAILY CAITLYN Administration
Ondansetron HCl 4 mg 11/01/23 21:51
Ondansetron 4 Mg/2 Ml Vial IV 11/29/23 21:50
Q6HPRN PRN
nausea and vomiting
Pantoprazole Sodium 40 mg 11/02/23 08:00 11/07/23 08:43
Pantoprazole 40 Mg Delayed Release Tablet PO 11/30/23 07:59 40 mg
DAILY CAITLYN Administration
Polyethylene Glycol 17 grams 11/01/23 21:51
Polyethylene Glycol Powder 17 Grams Packet PO 11/29/23 21:50
DAILYPRN PRN
constipation
Senna/Docusate Sodium 1 tablet 11/01/23 21:51
Docusate W/Senna (Kell-Colace) Tablet PO 11/29/23 21:50
BIDPRN PRN
constipation
Sodium Chloride 0 flush 11/01/23 21:00
Sodium Chloride 0.9% (Flush) Syringe IV 11/29/23 20:59
PER PROTOCOL CAITLYN
Sodium Chloride 2 sprays 11/04/23 12:24
Sodium Chloride 0.65% Nasal Boring 45 Ml Bottle NASAL 12/02/23 12:23
QIDPRN PRN
dry/congested nares
Review of Systems
-
History Source: Patient
Constitutional: Reports Weight Loss, No Appetite, Fatigue and Weakness
EENT: Reports No Symptoms
Respiratory: Reports Cough and Trouble Breathing
Cardiac: Reports No Symptoms
GI: Reports Diarrhea
: Reports No Symptoms
Neuro: Reports Weakness
Psych: Reports No Symptoms
Physical Exam
-
General: Well Developed, Comfortable, Conversant and Cachetic
GI: Soft
Musculoskeletal: No Clubbing, No Cyanosis and No Edema
Skin: Warm and Dry
Psych: Calm
Labs
Lab Results
WBC 17.4 10^3/uL (4.8-10.8) H 11/07/23 07:58
RBC 4.42 10^6/uL (4.70-6.10) L 11/07/23 07:58
Hgb 12.4 g/dL (13.0-18.0) L 11/07/23 07:58
Hct 34.6 % (39.0-52.0) L 11/07/23 07:58
MCV 78.3 fL (80.0-94.0) L 11/07/23 07:58
MCH 28.1 pg (27.0-31.0) 11/07/23 07:58
MCHC 35.8 g/dL (33.0-37.0) 11/07/23 07:58
RDW 15.5 % (11.5-14.5) H 09/18/24 07:58
Plt Count 523 10^3/uL (130-400) H 11/07/23 07:58
MPV 10.4 fL (7.4-10.4) 11/07/23 07:58
Abs Immat Gran (auto) 0.2 10^3/uL (0-0.05) H 11/07/23 07:58
Absolute Neuts (auto) 14.5 10^3/uL (1.4-6.5) H 11/07/23 07:58
Absolute Lymphs (auto) 0.7 10^3/uL (1.2-3.4) L 11/07/23 07:58
Absolute Monos (auto) 1.5 10^3/uL (0.1-0.6) H 11/07/23 07:58
Absolute Eos (auto) 0.4 10^3/uL (0-0.7) 11/07/23 07:58
Absolute Basos (auto) 0.1 10^3/uL (0-0.2) 11/07/23 07:58
Immature Gran % 1.0 % (0-0.5) H 11/07/23 07:58
Neutrophils % 83.3 % (42.2-75.2) H 11/07/23 07:58
Lymphocytes % 3.9 % (20.5-51.1) L 11/07/23 07:58
Monocytes % 8.7 % (1.7-9.3) 11/07/23 07:58
Eosinophils % 2.4 % (0-6) 11/07/23 07:58
Basophils % 0.7 % (0-2) 11/07/23 07:58
Creatinine 1.7 mg/dL (0.7-1.3) H 11/06/23 07:15
Vital Signs
Vital Signs
Temp Pulse Resp BP Pulse Ox
99.6 F 90 18 197/83 97
11/07/23 07:00 11/07/23 08:44 11/07/23 07:00 11/07/23 08:44 11/07/23 07:00

Documented by User: Payam Smith MD 11/07/23 12:59
Impression
Impression
monoclonal gammopathy - concerning for myeloma
hypercalcemia
renal insufficiency
pneuomonia
HTN
DM
Plan
Plan
Start patient on pulse dexamethasone 40 mg/4 days
Patient will require BM biopsy prior to any treatment initiation.
follow up OP with office for treatment of MM and bone strengthener
continue to follow Ca levels and treat with Pamidronate if needed
continue all other medical management per primary care team
Oncology Addendum:
Patient seen and evaluated and agree w/ resident note and plan as outlined.
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
-hypercalcemia tx w/ pamidronate 10/31 - IVF - nephrology following
-SPEP w/ 1.95g/dl - M-spike w/ IgG lambda band - IgG 2766 and urine lambda free light chain - 5153mg/L
-needs marrow - as treatment would be indicated VIOLETA in setting of symptomatic myeloma
-start dex 40mg daily
-follow CBC
-monitor blood glucose on steroids w/ h/o DM
-discussed potential diagnosis of MM w/ patient and daughter - await marrow pathology
will continue to follow with you
[2023-11-07 10:25] LABS: ALT (SGPT) 117 U/L (0-50); AST (SGOT) 124 U/L (17-59); Albumin 2.8 g/dl (3.5-5.0); Alkaline Phosphatase 149 U/L (38-126); Blood Urea Nitrogen 20 mg/dl (9-20); Calcium 9.3 mg/dl (8.4-10.2); Carbon Dioxide 20 mmol/L (22-30); Chloride 104 mmol/L (98-107); Direct Bilirubin 0.3 mg/dl (0.0-0.4); Estimated Creatinine Clearance 31 ml/min; Glucose 100 mg/dl (70-99); Magnesium 1.6 mg/dl (1.6-2.3); Potassium 3.5 mmol/L (3.5-5.1); Sodium 137 mmol/L (135-145); Total Bilirubin 0.8 mg/dl (0.2-1.3); Total Protein 6.6 g/dl (6.3-8.2); eGFR 50.18
[2023-11-07 13:05] LABS: Glucose - Point of Care 189 mg/dl (70-99)
[2023-11-07] MEDS: NOVOLOG FLEXPEN-LOW RESISTANCE 1 UNITS SC (13:21)
--- NOTE | 2023-11-07 13:35 | W.PN.NEPH.PH ---
Today's Communication / Plan
-
prn lasix
increase procardia to BID
Assessment/Plan
-
Assessment
LESVIA
CKD3a (1.0)
hypercalcemia
DM2
HTN
volume depletion
loss of appetite
falls
TAVR
Plan
AKI_cr improving to 1.4 with CN
calcium normal
PTHrP high and paraprotein shows papo M protein -heme consulted , steroid started
resp status better today , prn lasix
abx for PNA continues
BPs are high , increase Procardia to 90 BID
d/w daughter and pt
d/w nursing
-
-
Date of Service: November 07, 2023
CC / HPI / ROS
-
Chief Complaint:
LESVIA, hypercalcemia
History of Present Illness:
LESVIA/Cr better at 1.4
Calcium better at 9.3
nonoliguric
BP high
abx for PNA
Review of Systems:
feels fine, no cp
improved sob
no n/v
Labs
-
Labs:
WBC 17.4 10^3/uL (4.8-10.8) H 11/07/23 07:58
RBC 4.42 10^6/uL (4.70-6.10) L 11/07/23 07:58
Hgb 12.4 g/dL (13.0-18.0) L 11/07/23 07:58
Hct 34.6 % (39.0-52.0) L 11/07/23 07:58
Plt Count 523 10^3/uL (130-400) H 11/07/23 07:58
Sodium 137 mmol/L (135-145) 11/07/23 07:58
Potassium 3.5 mmol/L (3.5-5.1) 11/07/23 07:58
Chloride 104 mmol/L (98-107) 11/07/23 07:58
Carbon Dioxide 20 mmol/L (22-30) L 11/07/23 07:58
BUN 20 mg/dl (9-20) 11/07/23 07:58
Creatinine 1.4 mg/dL (0.7-1.3) H 11/07/23 07:58
eGFR 50.18 11/07/23 07:58
Glucose 100 mg/dl (70-99) H 11/07/23 07:58
Calcium 9.3 mg/dl (8.4-10.2) 11/07/23 07:58
Phosphorus 3.6 mg/dl (2.5-4.5) 11/01/23 21:36
Lyj-Q-Ealozjssepw Pept 4700 pg/ml 11/03/23 02:21
Albumin 2.8 g/dl (3.5-5.0) L 11/07/23 07:58
Physical Exam
-
Vital Signs:
Vital Signs
Temp Pulse Resp BP Pulse Ox
99.6 F 90 18 197/83 97
11/07/23 07:00 11/07/23 08:44 11/07/23 07:00 11/07/23 08:44 11/07/23 07:00
Cardiovascular:: Regular rate and rhythm
Respiratory:: Bilateral: CTA
Lung Excursion:: Normal
Abdomen:: Nontender and Soft
Extremity Edema:: None: Bilateral:
Han Catheter: No
[2023-11-07] MEDS: DECADRON 60 MG IV (14:23)
[2023-11-07 15:00] VITALS: BP 134/62
[2023-11-07 15:21] VITALS: BP 140/65; PULSE 77; O2SAT 97
[2023-11-07] MEDS: MAGNESIUM SULFATE 50 IV (15:27)
--- NOTE | 2023-11-07 15:27 | CM ---
quality assurance test program manager reviewed patient's chart and met with patient and patient's daughter to review options multiple referrals sent to [place] facilities including [facility], [facility], [facility], [facility] [place],
[facility] and [facility], [facility], all facilities are saying that they do not have a contact with patient's insurance, disease case manager spoke with Saritha at [facility] and Lois at [facility], and they will have their
business office review, other option would e for daughter to take patient to her house in [place] with visiting nurses.
Plan; skilled in [place] v's home with daughter in [place] and visiting nurse services.
[2023-11-07 16:04] VITALS: BP 133/74; O2SAT 98
[2023-11-07] MEDS: NOVOLOG FLEXPEN-LOW RESISTANCE 2 UNITS SC (17:12)
[2023-11-07 17:14] LABS: Glucose - Point of Care 203 mg/dl (70-99)
[2023-11-07] MEDS: KCL 270 MEQ IV (17:46)
[2023-11-07 21:03] LABS: Glucose - Point of Care 341 mg/dl (70-99)
[2023-11-07 23:25] VITALS: BP 133/61
[2023-11-08] MEDS: HEPARIN 5000 UNITS SC ×4 (00:55→23:52)
[2023-11-08] MEDS: ZOSYN 50 IV ×4 (01:00→20:08)
[2023-11-08 07:00] VITALS: BP 167/86
[2023-11-08 07:36] LABS: Glucose - Point of Care 161 mg/dl (70-99)
[2023-11-08] MEDS: NOVOLOG FLEXPEN-LOW RESISTANCE 1 UNITS SC (08:29)
[2023-11-08] MEDS: PROCARDIA XL (EXTENDED RELEASE) 90 MG PO ×2 (08:29→20:13)
[2023-11-08] MEDS: ZEBETA 10 MG PO (08:30)
[2023-11-08] MEDS: MUCINEX 1200 MG PO ×2 (08:30→20:06)
[2023-11-08] MEDS: ASPIR LOW (ENTERIC COATED) 81 MG PO (08:31)
[2023-11-08] MEDS: PROTONIX 40 MG PO (08:31)
[2023-11-08] MEDS: VITAMIN B-12 1000 MCG PO (08:31)
[2023-11-08 08:32] LABS: Hematocrit 35.7 % (39.0-52.0); Hemoglobin 12.7 g/dL (13.0-18.0); Mean Corp Hgb Conc. 35.6 g/dL (33.0-37.0); Mean Corpuscular Hgb 27.3 pg (27.0-31.0); Mean Corpuscular Volume 76.6 fL (80.0-94.0); Mean Platelet Volume 10.2 fL (7.4-10.4); Platelet Count 609 10^3/uL (130-400); Red Blood Cell Count 4.66 10^6/uL (4.70-6.10); Red Cell Dist. Width 15.8 % (11.5-14.5)
[2023-11-08 08:50] LABS: ALT (SGPT) 101 U/L (0-50); AST (SGOT) 89 U/L (17-59); Albumin 3.1 g/dl (3.5-5.0); Alkaline Phosphatase 146 U/L (38-126); Blood Urea Nitrogen 24 mg/dl (9-20); Calcium 9.7 mg/dl (8.4-10.2); Carbon Dioxide 18 mmol/L (22-30); Chloride 103 mmol/L (98-107); Direct Bilirubin 0.4 mg/dl (0.0-0.4); Estimated Creatinine Clearance 34 ml/min; Glucose 162 mg/dl (70-99); Magnesium 2.1 mg/dl (1.6-2.3); Sodium 134 mmol/L (135-145); Total Bilirubin 0.8 mg/dl (0.2-1.3); Total Protein 7.3 g/dl (6.3-8.2); eGFR 54.85
--- NOTE | 2023-11-08 08:58 | W.PN.HOSP.TC ---
Today's Communication/Plan
-
see A/P
Assessment / Plan
Assessment / Plan
A/P:
# LESVIA on CKD stage 3a, LESVIA has resolved
initially dehydrated, now due to contrast from PE study
hold ARB
monitor BMP, SCr today at 1.3 from baseline 1.2
Renal US negative
follow Nephrology recs
# Acute Hypercalcemia, symptomatic with weakness, likely due to multiple myeloma
s/p Pamidronate
s/p IVF
Vit D and PTH normal
Noted significantly elevated urine free Lambda light chain at 5000, IgG level high at 2700
Follow serum light chain levels
renal on board, Onc on board
pt was started with high dose steroid Decadron 40 mg daily
BM biopsy per Onc , IRAD consulted
# Leukocytosis, suspected aspiration pneumonia
CT chest: Posterior bibasilar patchy and confluent posterior bibasilar airspace opacity and interstitial thickening. Posterior bibasilar atelectasis versus pneumonia. Peribronchial thickening. Mucous plugging.
continue IV Zosyn
ST eval: IDDSI 6
mucolytics and Mucinex, nasal spray added
# Acute hypoxic respiratory insufficiency, resolved
weaned from 4L NC to RA
# Elevated BNP, possible acute CHF from volume overload from necessary IVF for Ca treatment
s/p IV Lasix 1 dose
IVF capped
Echo: with normal EF, mod MS, mild increase gradient of bioprosthetic Aortic valve
# Hypokalemia
replete prn
# Hypoglycemia
# Hx of type 2 DM
in setting of poor oral intake, weight loss and LESVIA while on glipizide sulfonylurea
encourage oral intake
follow accu-checks
A1c is 5.2%
# Essential HTN
continue Bisoprolol, Nifedipine increased to 90 mg BID
Losartan held with LESVIA
# Hematuria, mild
Renal US negative
repeat UA showing improvement
# Elevated LFT suspect reactive
improving
follow LFT levels
# HLD
Holding PULL OVER MACHINE OPERATOR Statin/Zetia due to elevated LFT
# GERD
# Barretts esophagus
continue PPI
# Hypomagnesemia
repleted
# Sacral wound
DVT ppx: SC Heparin
Code: Full
DW RN
DW daughter
total time spent 51 min
Anticipated Discharge: > 48 hours
Subjective/Interval History
-
Date of Service: November 08, 2023
Objective Data
-
Labs:
Laboratory Results
11/08/23
07:18
WBC 29.0 H
Hgb 12.7 L
Hct 35.7 L
Plt Count 609 H
Sodium 134 L
Potassium 4.0
Chloride 103
Carbon Dioxide 18 L
BUN 24 H
Creatinine 1.3
Glucose 162 H
Calcium 9.7
Total Bilirubin 0.8
AST 89 H
ALT 101 H
Alkaline Phosphatase 146 H
Vital Signs:
Vital Signs
Temp Pulse Resp BP Pulse Ox
36.5 C 78 18 167/86 92
11/08/23 07:00 11/08/23 08:29 11/08/23 07:00 11/08/23 08:29 11/08/23 07:00
I&O
11/07/23 11/08/23 11/09/23
06:59 06:59 06:59
Intake Total 1140 / 1140 1050 / 1050
Output Total 1350 / 1350 375 / 375
Balance -210 / -210 675 / 675
Review of Systems
-
All other systems: Reviewed and negative
Physical Exam
-
General: Well Developed, Well Nourished, No Apparent Distress, Comfortable and Appears Chronically Ill
HEENT: Normocephalic and Atraumatic
Respiratory: Non Labored Respirations; Negative Accessory Resp Muscle Use
Cardiac: Regular Rhythm and S1/S2
GI: Soft and Nontender
Neuro: Awake and Alert
Psych: Calm and Intact Judgement/Insight
Data Reviewed
-
CT Scan: Report Reviewed by me
Labs: Labs Reviewed by me, Discussed with Physician and Discussed with Family
[2023-11-08 09:22] LABS: % Basophils 0.4 % (0-2); % Eosinophils 0.1 % (0-6); % Immature Granulocytes 3.1 % (0-0.5); % Lymphocytes 3.4 % (20.5-51.1); % Monocytes 5.8 % (1.7-9.3); % Neutrophils 87.2 % (42.2-75.2); Absolute Basophils 0.1 10^3/uL (0-0.2); Absolute Immature Granulocytes 0.9 10^3/uL (0-0.05); Absolute Monocytes 1.7 10^3/uL (0.1-0.6); Absolute Neutrophils 25.3 10^3/uL (1.4-6.5); Nucleated Red Blood Cells % 0 % (-)
--- NOTE | 2023-11-08 09:37 | W.PN.ONC2 ---
Today's Communication / Plan
-
Start patient on pulse dexamethasone 40 mg/4 days
Continue to monitor CBC and blood glucose on steroids with history of diabetes
Patient will require BM biopsy prior to any treatment initiation. Inpatient bone marrow biopsy planned for tomorrow 11/08.
follow up OP with office for treatment of MM and bone strengthener
continue to follow Ca levels and treat with Pamidronate if needed
continue all other medical management per primary care team
Impression
Impression
monoclonal gammopathy - concerning for myeloma
hypercalcemia
renal insufficiency
pneuomonia
HTN
DM
Subjective/Objective
Chief Complaint
Oncology follow-up
Subjective
Patient was sitting comfortably in room today, feeling more energetic than yesterday. He reiterated that his goal was to be able to return to living unassisted. He states that if he is strong enough, he would like to be able to take himself to his
doctors appointments to get treatment and is willing to go to rehab, physical therapy and work on nutrition.
Vital Signs:
Vital Signs
Temp Pulse Resp BP Pulse Ox
97.7 F 78 18 167/86 92
11/08/23 07:00 11/08/23 08:29 11/08/23 07:00 11/08/23 08:29 11/08/23 07:00
Lab Results:
Laboratory Data
WBC 29.0 10^3/uL (4.8-10.8) H 11/08/23 07:18
Hgb 12.7 g/dL (13.0-18.0) L 11/08/23 07:18
Plt Count 609 10^3/uL (130-400) H 11/08/23 07:18
eGFR 54.85 11/08/23 07:18
Physical Exam
General: Alert and oriented x 3, conversant, resting comfortably in chair
Orders
Orders
Orders From Last 24 Hours
11/07/23 11:00
Dexamethasone Sod Phosphate [Decadron] 40 mg IV DAILY
11/07/23 14:00
Dexamethasone Sod Phosphate [Decadron] 40 mg 0.9% Sodium Chloride 50 ml [Nss] 50 ml IV Q24H
--- NOTE | 2023-11-08 11:15 | WOUNDNOTE ---
[facility] RN note: Patient admitted with hypoglycemia, hypercalcemia, bone biopsy planned 11/08. Patient lives alone. Plan is SNF or home with VN when discharged.
See H&P for complete history.
PMH: HTN, NIDDM, CKD3a, Sweeney's esophagus, GI bleed, AVR.
Wound Location and type/assessment: Patient has a L sacral/buttocks and L inner thigh vesicular rash without drainage. Patient c/o itch L inner thigh suspect zoster rash. Patient stated he had Shingles about 12 years ago. He stated he did not get a
Shingles vaccine. L great toenail with some dry brown necrotic appearing tissue along proximal edges of partial toenail with local mild erythema. He stated he banged his toe about 1 month ago. Patient denies L toe pain. +Pedal pulses. +Perianal
MASD.
Appetite: good.
Pressure redistribution devices in place: My Own [employer] Accumax. Patient stood with walker and supervision during sacral skin assessment.
Plan: Patient stood with walker and supervision/assist by ARLENE Goldstein. Air chair cushion given. Barrier ointment applied to perianal skin. Instructed patient to make appt with a [facility] clerk for his toenail especially L great toenail.
Updated Dr. Weldon re: zoster appearing L sacral and inner thigh rash and appearance of L great toe. Defer to hospitalist re: antiviral. Discussed with ARLENE Goldstein.
Updated care plan and will follow peripherally as needed.
--- NOTE | 2023-11-08 11:15 | WOUNDNOTE ---
[facility] RN note: Patient admitted with hypoglycemia, hypercalcemia, bone biopsy planned 11/08. Patient lives alone. Plan is SNF or home with VN when discharged.
See H&P for complete history.
PMH: HTN, NIDDM, CKD3a, Sweeney's esophagus, GI bleed, AVR.
Wound Location and type/assessment: Patient has a L sacral/buttocks and L inner thigh vesicular rash without drainage suspect zoster rash. Patient c/o itch L inner thigh rash. Patient stated he had Shingles about 12 years ago. He stated he did not
get a Shingles vaccine. L great toenail with some dry brown necrotic appearing tissue along proximal edges of partial toenail with local mild erythema. He stated he banged his toe about 1 month ago. Patient denies L toe pain. +Pedal pulses.
+Perianal MASD.
Appetite: good.
Pressure redistribution devices in place: VersaVerid Accumax. Patient stood with walker and supervision during sacral skin assessment.
Plan: Patient stood with walker and supervision/assist by ARLENE Goldstein. Air chair cushion given. Barrier ointment applied to perianal skin. Instructed patient to make appt with a botanical technical officer for his toenail especially L great toenail.
Updated Dr. Weldon re: zoster appearing L sacral and inner thigh rash, defer to hospitalist re: antiviral and updated Dr. Weldon re: appearance of L great toe. Discussed with ARLENE Goldstein. Added to discharge instructions to make appointment with
botanical technical officer.
Updated care plan and will follow peripherally as needed.
[2023-11-08 11:48] LABS: Glucose - Point of Care 239 mg/dl (70-99)
[2023-11-08] MEDS: NOVOLOG FLEXPEN-LOW RESISTANCE 2 UNITS SC ×2 (13:14→17:39)
[2023-11-08] MEDS: DECADRON 60 MG IV (13:16)
[2023-11-08] MEDS: VALTREX 1000 MG PO ×2 (13:16→23:51)
--- NOTE | 2023-11-08 14:11 | CM ---
Addendum entered by Fanny Blanca 11/08/23 15:13:
Per Saritha in admissions at [facility], they can accept patient on isolation, they will have an isolation bed available on Sunday11/12/24, correctional casework specialist will need to follow up on Sunday with Saritha and obtain Auth.
Original Note:
Chart reviewed and correctional casework specialist spoke with Saritha [phone], at [facility], and they had accepted patient after his last dose of Dexamethasone, 11/10/23 but then correctional casework specialist was informed by nursing of possible shingles, facility
contacted and they are requested testing.
Plan; Skilled placement in [place], hopefully at [facility].
--- NOTE | 2023-11-08 14:40 | W.PN.NEPH.PH ---
Today's Communication / Plan
-
add hydralazine for HTN
Assessment/Plan
-
Assessment
LESVIA
CKD3a (1.0)
hypercalcemia
DM2
HTN
volume depletion
loss of appetite
falls
TAVR
Plan
AKI_cr improving to 1.3
calcium normal
PTHrP high and paraprotein shows kappa M protein - steroid started
for BM biopsy tomorrow
resp status stable , prn lasix
abx for PNA continues
BPs are high , increase Procardia to 90 BID 11/06
now he is on steroids may need additional medication-add hydraalzine
d/w daughter and pt
-
-
Date of Service: November 08, 2023
CC / HPI / ROS
-
Chief Complaint:
LESVIA, hypercalcemia
History of Present Illness:
LESVIA/Cr better at 1.3
Calcium normal
nonoliguric
BP high
abx for PNA
Review of Systems:
feels fine, no cp
improved sob, feels well. decreased cough
no n/v
Labs
-
Labs:
WBC 29.0 10^3/uL (4.8-10.8) H 11/08/23 07:18
RBC 4.66 10^6/uL (4.70-6.10) L 11/08/23 07:18
Hgb 12.7 g/dL (13.0-18.0) L 11/08/23 07:18
Hct 35.7 % (39.0-52.0) L 11/08/23 07:18
Plt Count 609 10^3/uL (130-400) H 11/08/23 07:18
Sodium 134 mmol/L (135-145) L 11/08/23 07:18
Potassium 4.0 mmol/L (3.5-5.1) 11/08/23 07:18
Chloride 103 mmol/L (98-107) 11/08/23 07:18
Carbon Dioxide 18 mmol/L (22-30) L 11/08/23 07:18
BUN 24 mg/dl (9-20) H 11/08/23 07:18
Creatinine 1.3 mg/dL (0.7-1.3) 11/08/23 07:18
eGFR 54.85 11/08/23 07:18
Glucose 162 mg/dl (70-99) H 11/08/23 07:18
Calcium 9.7 mg/dl (8.4-10.2) 11/08/23 07:18
Phosphorus 3.6 mg/dl (2.5-4.5) 11/01/23 21:36
Utt-B-Gftnuewbctm Pept 4700 pg/ml 11/03/23 02:21
Albumin 3.1 g/dl (3.5-5.0) L 11/08/23 07:18
Physical Exam
-
Vital Signs:
Vital Signs
Temp Pulse Resp BP Pulse Ox
97.7 F 78 18 167/86 92
11/08/23 07:00 11/08/23 08:29 11/08/23 07:00 11/08/23 08:29 11/08/23 07:00
Cardiovascular:: Regular rate and rhythm
Respiratory:: Bilateral: Rales (left base)
Lung Excursion:: Normal
Abdomen:: Nontender and Soft
Extremity Edema:: None: Bilateral:
Han Catheter: No
[2023-11-08 15:00] VITALS: BP 123/66
[2023-11-08 16:00] VITALS: BP 123/66
[2023-11-08 17:35] LABS: Glucose - Point of Care 225 mg/dl (70-99)
[2023-11-08] MEDS: SODIUM BICARBONATE 650 MG PO (20:08)
[2023-11-08] MEDS: APRESOLINE 20 MG PO (20:12)
[2023-11-08 21:31] LABS: Glucose - Point of Care 480 mg/dl (70-99)
[2023-11-08 22:27] LABS: Glucose 377 mg/dl (70-99)
[2023-11-08 23:11] VITALS: BP 117/56
[2023-11-09] MEDS: ZOSYN 50 IV ×4 (01:21→20:41)
[2023-11-09 01:28] LABS: Glucose - Point of Care 268 mg/dl (70-99)
[2023-11-09] MEDS: VALTREX 1000 MG PO ×3 (05:05→21:02)
[2023-11-09 07:30] VITALS: BP 150/68
[2023-11-09] MEDS: PROTONIX 40 MG PO (07:48)
[2023-11-09] MEDS: PROCARDIA XL (EXTENDED RELEASE) 90 MG PO ×2 (07:48→20:59)
[2023-11-09] MEDS: APRESOLINE 20 MG PO ×2 (07:48→20:58)
[2023-11-09] MEDS: MUCINEX 1200 MG PO ×2 (07:48→20:41)
[2023-11-09] MEDS: ZEBETA 10 MG PO (07:49)
[2023-11-09] MEDS: SODIUM BICARBONATE 650 MG PO ×2 (07:49→20:41)
[2023-11-09] MEDS: VITAMIN B-12 1000 MCG PO (07:49)
[2023-11-09] MEDS: ASPIR LOW (ENTERIC COATED) 81 MG PO (07:49)
[2023-11-09] MEDS: HEPARIN 5000 UNITS SC ×3 (07:49→22:47)
[2023-11-09] MEDS: NOVOLOG FLEXPEN-LOW RESISTANCE 1 UNITS SC (07:50)
[2023-11-09 07:59] LABS: Hematocrit 31.7 % (39.0-52.0); Hemoglobin 11.7 g/dL (13.0-18.0); Mean Corp Hgb Conc. 36.9 g/dL (33.0-37.0); Mean Corpuscular Hgb 28.7 pg (27.0-31.0); Mean Corpuscular Volume 77.7 fL (80.0-94.0); Mean Platelet Volume 10.2 fL (7.4-10.4); Platelet Count 581 10^3/uL (130-400); Red Blood Cell Count 4.08 10^6/uL (4.70-6.10); Red Cell Dist. Width 15.8 % (11.5-14.5); White Blood Cell Count 28.2 10^3/uL (4.8-10.8)
[2023-11-09 08:01] LABS: INR 1.01; PT 13.1 Sec (11.4-14.6)
[2023-11-09 08:08] LABS: Glucose - Point of Care 152 mg/dl (70-99)
[2023-11-09 08:25] LABS: ALT (SGPT) 87 U/L (0-50); AST (SGOT) 73 U/L (17-59); Alkaline Phosphatase 128 U/L (38-126); Blood Urea Nitrogen 28 mg/dl (9-20); Calcium 9.5 mg/dl (8.4-10.2); Carbon Dioxide 16 mmol/L (22-30); Chloride 104 mmol/L (98-107); Direct Bilirubin 0.4 mg/dl (0.0-0.4); Estimated Creatinine Clearance 31 ml/min; Glucose 143 mg/dl (70-99); Magnesium 1.9 mg/dl (1.6-2.3); Sodium 134 mmol/L (135-145); Total Bilirubin 0.8 mg/dl (0.2-1.3); eGFR 50.18
[2023-11-09 08:31] LABS: % Basophils 0.2 % (0-2); % Eosinophils 0.1 % (0-6); % Immature Granulocytes 1.9 % (0-0.5); % Lymphocytes 3.4 % (20.5-51.1); % Monocytes 7.9 % (1.7-9.3); % Neutrophils 86.5 % (42.2-75.2); Absolute Basophils 0.1 10^3/uL (0-0.2); Absolute Immature Granulocytes 0.5 10^3/uL (0-0.05); Absolute Monocytes 2.2 10^3/uL (0.1-0.6); Absolute Neutrophils 24.4 10^3/uL (1.4-6.5); Nucleated Red Blood Cells % 0 % (-)
--- NOTE | 2023-11-09 08:52 | W.PN.HOSP.TC ---
Today's Communication/Plan
-
see A/P
Assessment / Plan
Assessment / Plan
A/P:
# LESVIA on CKD stage 3a
2/2 dehydration, contrast from PE study, and also MM
hold ARB
monitor BMP, SCr today at 1.4 from baseline 1.2
Renal US negative
follow Nephrology recs
# Acute Hypercalcemia with weakness, due to multiple myeloma
s/p Pamidronate
s/p IVF
Vit D and PTH normal
Noted significantly elevated urine free Lambda light chain at 5000, IgG level high at 2700
Follow serum light chain levels
renal on board, Onc on board
pt was started with high dose steroid Decadron 40 mg daily x4 days
for BM biopsy by IRAD 11/08
# Leukocytosis, suspected aspiration pneumonia and now steroid induced
CT chest: Posterior bibasilar patchy and confluent posterior bibasilar airspace opacity and interstitial thickening. Posterior bibasilar atelectasis versus pneumonia. Peribronchial thickening. Mucous plugging.
continue IV Zosyn x5 days total
ST eval: IDDSI 6
mucolytics and Mucinex, nasal spray added
# Acute hypoxic respiratory insufficiency, resolved
weaned from 4L NC to RA
# Elevated BNP, possible acute CHF from volume overload from necessary IVF for Ca treatment
s/p IV Lasix 1 dose
IVF capped
Echo: with normal EF, mod MS, mild increase gradient of bioprosthetic Aortic valve
# Hypokalemia
replete prn
# Hypoglycemia
# Hx of type 2 DM
in setting of poor oral intake, weight loss and LESVIA while on glipizide sulfonylurea
encourage oral intake
follow accu-checks
A1c is 5.2%
# Essential HTN
continue Bisoprolol, Nifedipine increased to 90 mg BID , added hydralazine 20 mg BID
Losartan stopped 2/2 LESVIA
# Shingles lower back
Started Valtrex 1000 mg Q8H x7 days
Contact precaution
Appreciate wound care
# Hematuria, mild
Renal US negative
repeat UA showing improvement
# Elevated LFT suspect reactive
improving
follow LFT levels
# HLD
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
# GERD
# Barretts esophagus
continue PPI
# Hypomagnesemia
repleted
# Sacral wound
DVT ppx: SC Heparin
Code: Full
DW RN
\\
Anticipated Discharge: > 48 hours
Subjective/Interval History
-
Date of Service: November 09, 2023
Objective Data
-
Labs:
Laboratory Results
11/08/23 11/09/23
22:00 07:03
WBC 28.2 H
Hgb 11.7 L
Hct 31.7 L
Plt Count 581 H
PT 13.1
INR 1.01
Sodium 134 L
Potassium 4.0
Chloride 104
Carbon Dioxide 16 L
BUN 28 H
Creatinine 1.4 H
Glucose 377 H 143 H
Calcium 9.5
Total Bilirubin 0.8
AST 73 H
ALT 87 H
Alkaline Phosphatase 128 H
Vital Signs:
Vital Signs
Temp Pulse Resp BP Pulse Ox
36.5 C 78 16 150/68 97
11/09/23 07:30 11/09/23 07:30 11/09/23 07:30 11/09/23 07:30 11/09/23 07:30
I&O
11/08/23 11/09/23 11/10/23
06:59 06:59 06:59
Intake Total 1050 / 1050 480 / 480
Output Total 375 / 375
Balance 675 / 675 480 / 480
Review of Systems
-
All other systems: Reviewed and negative
Physical Exam
-
General: Well Developed, Well Nourished, No Apparent Distress, Comfortable and Appears Chronically Ill
HEENT: Normocephalic and Atraumatic
Respiratory: Non Labored Respirations; Negative Accessory Resp Muscle Use
Cardiac: Regular Rhythm and S1/S2
GI: Soft and Nontender
Skin: Lesions (see wound care )
Neuro: Awake and Alert
Psych: Calm and Intact Judgement/Insight
Data Reviewed
-
CT Scan: Report Reviewed by me
Labs: Labs Reviewed by me, Discussed with Physician and Discussed with Family
[2023-11-09] MEDS: ATIVAN 0.5 MG IV (09:07)
[2023-11-09] MEDS: NSS (PRESERVATIVE FREE) 0.25 ML IV (09:07)
[2023-11-09 10:01] VITALS: BP 140/67; BP_SYST 80
--- NOTE | 2023-11-09 10:38 | CM ---
Addendum entered by Yumiko Richardson 11/09/23 14:50:
Per Erica, she will have a bed available Sunday. Patient will need insurance auth.
Addendum entered by Yumiko Richardson 11/09/23 10:51:
Spoke with Erica, cx not needed. Would like to know date of onset with shingles.
Original Note:
Spoke with Saritha in admissions at [facility], , they can accept patient on isolation.
They anticipate having an isolation bed available on Sunday11/12/24.
Please touch base with Erica on Sunday re bed availability.
They requested shingles verification by cultures, TT to .
Patient will require insurance auth.
Facility NPI# [id number]
NPI# [id number], Dr Armond Hunt
Plan; Skilled placement in [place], hopefully at [facility].
--- NOTE | 2023-11-09 10:47 | W.PN.NEPH.PH ---
Today's Communication / Plan
-
follow BMP
Assessment/Plan
-
Assessment
LESVIA
CKD3a (1.0)
hypercalcemia
DM2
HTN
volume depletion
loss of appetite
falls
TAVR
Plan
follow BMP
BMBx today
steroids per hematology
d/w daughter
-
-
Date of Service: November 09, 2023
CC / HPI / ROS
-
Chief Complaint:
LESVIA, hypercalcemia
History of Present Illness:
LESVIA/Cr stable at 1.4
Calcium normal 9.5
nonoliguric
BP high
LFTs improving
on steroids for MM
abx for PNA
Review of Systems:
no cp /sob
Labs
-
Labs:
WBC 28.2 10^3/uL (4.8-10.8) H 11/09/23 07:03
RBC 4.08 10^6/uL (4.70-6.10) L 11/09/23 07:03
Hgb 11.7 g/dL (13.0-18.0) L 11/09/23 07:03
Hct 31.7 % (39.0-52.0) L 11/09/23 07:03
Plt Count 581 10^3/uL (130-400) H 11/09/23 07:03
Sodium 134 mmol/L (135-145) L 11/09/23 07:03
Potassium 4.0 mmol/L (3.5-5.1) 11/09/23 07:03
Chloride 104 mmol/L (98-107) 11/09/23 07:03
Carbon Dioxide 16 mmol/L (22-30) L 11/09/23 07:03
BUN 28 mg/dl (9-20) H 11/09/23 07:03
Creatinine 1.4 mg/dL (0.7-1.3) H 11/09/23 07:03
eGFR 50.18 11/09/23 07:03
Glucose 143 mg/dl (70-99) H 11/09/23 07:03
Calcium 9.5 mg/dl (8.4-10.2) 11/09/23 07:03
Phosphorus 3.6 mg/dl (2.5-4.5) 11/01/23 21:36
Jlo-V-Edcjtrpwmal Pept 4700 pg/ml 11/03/23 02:21
Albumin 3.0 g/dl (3.5-5.0) L 11/09/23 07:03
Physical Exam
-
Vital Signs:
Vital Signs
Temp Pulse Resp BP Pulse Ox
97.9 F 80 18 140/67 97
11/09/23 10:01 11/09/23 10:01 11/09/23 10:01 11/09/23 10:01 11/09/23 10:01
Cardiovascular:: Regular rate and rhythm
Respiratory:: Bilateral: Coarse
Lung Excursion:: Normal
Abdomen:: Nontender and Soft
Bowel Sounds:: Normal
Extremity Edema:: None: Bilateral:
[2023-11-09 11:23] VITALS: BP 162/66
[2023-11-09 11:58] LABS: Glucose - Point of Care 128 mg/dl (70-99)
[2023-11-09] MEDS: NOVOLOG FLEXPEN-LOW RESISTANCE SC (11:58)
[2023-11-09] MEDS: DECADRON 60 MG IV (14:05)
[2023-11-09 14:44] VITALS: BP 131/58
[2023-11-09 15:37] VITALS: BP 134/62; PULSE 72
[2023-11-09 16:19] LABS: Free Kappa Light Chains,Quant 26.28 mg/L (3.30-19.40); Free Lambda Light Chains,Quant 2108.42 mg/L (5.71-26.30); Kappa/Lambda Fr Light Ratio 0.01 (0.26-1.65)
[2023-11-09 17:37] LABS: Glucose - Point of Care 253 mg/dl (70-99)
[2023-11-09] MEDS: NOVOLOG FLEXPEN-LOW RESISTANCE 3 UNITS SC (17:39)
[2023-11-09] MEDS: FLUSH (NSS) 1 FLUSH IV (20:48)
[2023-11-09 21:18] LABS: Glucose - Point of Care 367 mg/dl (70-99)
--- NOTE | 2023-11-09 21:30 | PTCARENOTE ---
Pt's blood sugar was 367, notified LIVAN Vega, no further orders.
[2023-11-09 23:00] VITALS: BP 149/67
[2023-11-10] MEDS: ZOSYN 50 IV ×2 (02:30→08:11)
[2023-11-10] MEDS: FLUSH (NSS) 2 FLUSH IV (02:30)
[2023-11-10 03:00] VITALS: BP 146/69
[2023-11-10] MEDS: VALTREX 1000 MG PO ×3 (05:50→21:08)
[2023-11-10 06:42] LABS: Hemoglobin 12.6 g/dL (13.0-18.0); Mean Corpuscular Hgb 28.1 pg (27.0-31.0); Mean Corpuscular Volume 78.1 fL (80.0-94.0); Mean Platelet Volume 10.3 fL (7.4-10.4); Platelet Count 683 10^3/uL (130-400); Red Blood Cell Count 4.48 10^6/uL (4.70-6.10); Red Cell Dist. Width 15.7 % (11.5-14.5); White Blood Cell Count 26.1 10^3/uL (4.8-10.8)
[2023-11-10 06:49] LABS: ALT (SGPT) 81 U/L (0-50); AST (SGOT) 63 U/L (17-59); Albumin 3.2 g/dl (3.5-5.0); Alkaline Phosphatase 136 U/L (38-126); Blood Urea Nitrogen 31 mg/dl (9-20); Calcium 9.7 mg/dl (8.4-10.2); Carbon Dioxide 20 mmol/L (22-30); Chloride 102 mmol/L (98-107); Direct Bilirubin 0.3 mg/dl (0.0-0.4); Estimated Creatinine Clearance 31 ml/min; Glucose 181 mg/dl (70-99); Magnesium 1.7 mg/dl (1.6-2.3); Potassium 3.9 mmol/L (3.5-5.1); Sodium 135 mmol/L (135-145); Total Bilirubin 0.7 mg/dl (0.2-1.3); Total Protein 7.3 g/dl (6.3-8.2); eGFR 50.18
[2023-11-10 07:00] VITALS: BP 164/85
[2023-11-10 07:04] LABS: Glucose - Point of Care 181 mg/dl (70-99)
[2023-11-10] MEDS: NOVOLOG FLEXPEN-LOW RESISTANCE 1 UNITS SC ×2 (07:53→16:56)
[2023-11-10] MEDS: PROCARDIA XL (EXTENDED RELEASE) 90 MG PO ×2 (07:54→21:22)
[2023-11-10] MEDS: ZEBETA 10 MG PO (07:54)
[2023-11-10] MEDS: ASPIR LOW (ENTERIC COATED) 81 MG PO (07:54)
[2023-11-10] MEDS: MUCINEX 1200 MG PO ×2 (07:54→21:07)
[2023-11-10] MEDS: SODIUM BICARBONATE 650 MG PO ×2 (07:54→21:08)
[2023-11-10] MEDS: HEPARIN 5000 UNITS SC ×2 (07:54→15:37)
[2023-11-10] MEDS: PROTONIX 40 MG PO (07:54)
[2023-11-10] MEDS: APRESOLINE 20 MG PO ×2 (07:54→21:22)
[2023-11-10] MEDS: VITAMIN B-12 1000 MCG PO (07:54)
[2023-11-10 08:45] LABS: % Basophils 0.2 % (0-2); % Immature Granulocytes 2.8 % (0-0.5); % Lymphocytes 3.6 % (20.5-51.1); % Neutrophils 86.4 % (42.2-75.2); Absolute Basophils 0.1 10^3/uL (0-0.2); Absolute Immature Granulocytes 0.7 10^3/uL (0-0.05); Absolute Lymphocytes 0.9 10^3/uL (1.2-3.4); Absolute Monocytes 1.8 10^3/uL (0.1-0.6); Absolute Neutrophils 22.5 10^3/uL (1.4-6.5); Nucleated Red Blood Cells % 0 % (-)
--- NOTE | 2023-11-10 09:04 | W.PN.NEPH.PH ---
Today's Communication / Plan
-
follow BMP
Assessment/Plan
-
Assessment
LESVIA
CKD3a (1.0)
hypercalcemia
DM2
HTN
volume depletion
loss of appetite
falls
TAVR
Plan
follow BMP
await BMBx reading
steroids per hematology
-
-
Date of Service: November 10, 2023
CC / HPI / ROS
-
Chief Complaint:
LESVIA, hypercalcemia
History of Present Illness:
LESVIA/Cr stable at 1.4
Calcium normal 9.7
nonoliguric
BP high
LFTs improving
on steroids for MM
abx for PNA
valtrex for shingles
Review of Systems:
no cp /sob
Labs
-
Labs:
WBC 26.1 10^3/uL (4.8-10.8) H 11/10/23 05:51
RBC 4.48 10^6/uL (4.70-6.10) L 11/10/23 05:51
Hgb 12.6 g/dL (13.0-18.0) L 11/10/23 05:51
Hct 35.0 % (39.0-52.0) L 11/10/23 05:51
Plt Count 683 10^3/uL (130-400) H 11/10/23 05:51
Sodium 135 mmol/L (135-145) 11/10/23 05:51
Potassium 3.9 mmol/L (3.5-5.1) 11/10/23 05:51
Chloride 102 mmol/L (98-107) 11/10/23 05:51
Carbon Dioxide 20 mmol/L (22-30) L 11/10/23 05:51
BUN 31 mg/dl (9-20) H 11/10/23 05:51
Creatinine 1.4 mg/dL (0.7-1.3) H 11/10/23 05:51
eGFR 50.18 11/10/23 05:51
Glucose 181 mg/dl (70-99) H 11/10/23 05:51
Calcium 9.7 mg/dl (8.4-10.2) 11/10/23 05:51
Phosphorus 3.6 mg/dl (2.5-4.5) 11/01/23 21:36
Odz-M-Zakogyoneiu Pept 4700 pg/ml 11/03/23 02:21
Albumin 3.2 g/dl (3.5-5.0) L 11/10/23 05:51
Physical Exam
-
Vital Signs:
Vital Signs
Temp Pulse Resp BP Pulse Ox
97.4 F 82 18 164/85 98
11/10/23 07:00 11/10/23 07:00 11/10/23 07:00 11/10/23 07:00 11/10/23 07:00
Cardiovascular:: Regular rate and rhythm
Respiratory:: Bilateral: Coarse
Lung Excursion:: Normal
Abdomen:: Nontender and Soft
Bowel Sounds:: Normal
Extremity Edema:: None: Bilateral:
--- NOTE | 2023-11-10 09:20 | W.PN.HOSP.TC ---
Today's Communication/Plan
-
see A/P
Assessment / Plan
Assessment / Plan
A/P:
# LESVIA on CKD stage 3a
2/2 dehydration, contrast from PE study, and also MM
hold ARB
monitor BMP, SCr today at 1.4 from baseline 1.2
Renal US negative
follow Nephrology recs
# Acute Hypercalcemia with weakness, due to multiple myeloma
s/p Pamidronate
s/p IVF
Vit D and PTH normal
Noted significantly elevated urine free Lambda light chain at 5000, IgG level high at 2700, serum lambda light chain also elevated at 2000
renal on board, Onc on board
pt was started with high dose steroid Decadron 40 mg daily x4 days
s/p BM biopsy by IRAD 11/08
# Leukocytosis, suspected aspiration pneumonia and now steroid induced
CT chest: Posterior bibasilar patchy and confluent posterior bibasilar airspace opacity and interstitial thickening. Posterior bibasilar atelectasis versus pneumonia. Peribronchial thickening. Mucous plugging.
continue IV Zosyn x5 days total
ST eval: IDDSI 6
mucolytics and Mucinex, nasal spray added
# Acute hypoxic respiratory insufficiency, resolved
weaned from 4L NC to RA
# Elevated BNP, possible acute CHF from volume overload from necessary IVF for Ca treatment
s/p IV Lasix 1 dose
IVF capped
Echo: with normal EF, mod MS, mild increase gradient of bioprosthetic Aortic valve
# Hypokalemia
replete prn
# Hypoglycemia
# Hx of type 2 DM
in setting of poor oral intake, weight loss and LESVIA while on glipizide sulfonylurea
encourage oral intake
follow accu-checks
A1c is 5.2%a
# Essential HTN
continue Bisoprolol, Nifedipine increased to 90 mg BID, added hydralazine 20 mg BID
Losartan stopped 2/2 LESVIA
# Shingles lower back
Started Valtrex 1000 mg Q8H x7 days
Contact precaution
Appreciate wound care
# Hematuria, mild
Renal US negative
repeat UA showing improvement
# Elevated LFT suspect reactive
improving
follow LFT levels
# HLD
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
# GERD
# Barretts esophagus
continue PPI
# Hypomagnesemia
repleted
# Sacral wound
DVT ppx: SC Heparin
Code: Full
DW RN
DW daughter at bedside
Anticipated Discharge: > 48 hours
Subjective/Interval History
-
Date of Service: November 10, 2023
Objective Data
-
Labs:
Laboratory Results
11/10/23
05:51
WBC 26.1 H
Hgb 12.6 L
Hct 35.0 L
Plt Count 683 H
Sodium 135
Potassium 3.9
Chloride 102
Carbon Dioxide 20 L
BUN 31 H
Creatinine 1.4 H
Glucose 181 H
Calcium 9.7
Total Bilirubin 0.7
AST 63 H
ALT 81 H
Alkaline Phosphatase 136 H
Vital Signs:
Vital Signs
Temp Pulse Resp BP Pulse Ox
36.3 C 82 18 164/85 98
11/10/23 07:00 11/10/23 07:00 11/10/23 07:00 11/10/23 07:00 11/10/23 07:00
I&O
11/09/23 11/10/23 11/11/23
06:59 06:59 06:59
Intake Total 480 / 480 250 / 250
Output Total 600 / 600
Balance 480 / 480 -350 / -350
Review of Systems
-
All other systems: Reviewed and negative
Physical Exam
-
General: Well Developed, Well Nourished, No Apparent Distress, Comfortable and Appears Chronically Ill
HEENT: Normocephalic and Atraumatic
Respiratory: Non Labored Respirations; Negative Accessory Resp Muscle Use
Cardiac: Regular Rhythm and S1/S2
GI: Soft and Nontender
Skin: Lesions (see wound care )
Neuro: Awake and Alert
Psych: Calm and Intact Judgement/Insight (somewhat)
Data Reviewed
-
CT Scan: Report Reviewed by me
Labs: Labs Reviewed by me, Discussed with Physician and Discussed with Family
--- NOTE | 2023-11-10 11:00 | PTCARENOTE ---
Patient with large amount of sanguinous drainage from 11/08 bone marrow biopsy site in lower back, bleeding onto pad underneath. MD aware, instructed to place pressure dressing over site and monitor drainage. Dressing applied and intact.
[2023-11-10 11:49] LABS: Glucose - Point of Care 148 mg/dl (70-99)
[2023-11-10] MEDS: NOVOLOG FLEXPEN-LOW RESISTANCE SC (11:49)
--- NOTE | 2023-11-10 12:37 | CM ---
CM reviewed chart, [facility] will have bed on Sunday. Patient will require insurance authorization. CM will continue to follow for all discharge planing needs.
Plan; [facility] Sunday, will require insurance auth.
Facility NPI# [id number]
NPI# [id number], Dr Armond Hunt
[2023-11-10] MEDS: DECADRON 60 MG IV (14:02)
[2023-11-10] MEDS: SENOKOT-S 1 TABLET PO (15:37)
[2023-11-10 15:38] VITALS: BP 154/82
[2023-11-10 16:42] LABS: Glucose - Point of Care 178 mg/dl (70-99)
[2023-11-10 21:29] LABS: Glucose - Point of Care 381 mg/dl (70-99)
[2023-11-10 23:26] VITALS: BP 115/48
--- NOTE | 2023-11-10 23:30 | PTCARENOTE ---
Pt's blood sugar was 381, notified LIVAN negrete, ordered 2 units of Novalog and gave pt. snack of applesauce.
[2023-11-11] MEDS: HEPARIN 5000 UNITS SC ×3 (00:40→19:34)
[2023-11-11] MEDS: NOVOLOG FLEXPEN 2 UNITS SC (00:45)
[2023-11-11] MEDS: VALTREX 1000 MG PO ×3 (05:14→21:22)
[2023-11-11 07:05] VITALS: BP 148/93
[2023-11-11 08:05] VITALS: BP 148/93
[2023-11-11] MEDS: ASPIR LOW (ENTERIC COATED) 81 MG PO (08:09)
[2023-11-11] MEDS: MUCINEX 1200 MG PO ×2 (08:09→19:33)
[2023-11-11] MEDS: ZEBETA 10 MG PO (08:09)
[2023-11-11] MEDS: HEPARIN SC (08:09)
[2023-11-11] MEDS: PROCARDIA XL (EXTENDED RELEASE) 90 MG PO ×2 (08:09→19:38)
[2023-11-11] MEDS: VITAMIN B-12 1000 MCG PO (08:09)
[2023-11-11] MEDS: SODIUM BICARBONATE 650 MG PO ×2 (08:09→19:33)
[2023-11-11] MEDS: APRESOLINE 20 MG PO ×2 (08:09→19:39)
[2023-11-11] MEDS: PROTONIX 40 MG PO (08:09)
[2023-11-11] MEDS: MIRALAX 17 GRAMS PO (08:09)
[2023-11-11 08:19] LABS: Glucose - Point of Care 108 mg/dl (70-99)
[2023-11-11] MEDS: NOVOLOG FLEXPEN-LOW RESISTANCE SC (08:26)
--- NOTE | 2023-11-11 08:30 | W.PN.HOSP.TC ---
Today's Communication/Plan
-
see A/P
Assessment / Plan
Assessment / Plan
A/P:
# LESVIA on CKD stage 3a
2/2 dehydration, contrast from PE study, also MM
hold GLASS CUTTER HAND ARB
monitor BMP, SCr down to 1.4 from baseline 1.2
Renal US negative
follow Nephrology recs
# Acute Hypercalcemia with weakness, due to multiple myeloma
s/p Pamidronate
s/p IVF
Vit D and PTH normal
Noted significantly elevated urine free Lambda light chain at 5000, IgG level high at 2700, serum lambda light chain also elevated at 2000
renal on board, Onc on board
pt was started with high dose steroid Decadron 40 mg daily x4 days
s/p BM biopsy by IRAD 11/08,
follow formal path report
# Leukocytosis, suspected aspiration pneumonia and now steroid induced
CT chest: Posterior bibasilar patchy and confluent posterior bibasilar airspace opacity and interstitial thickening. Posterior bibasilar atelectasis versus pneumonia. Peribronchial thickening. Mucous plugging.
s/p IV Zosyn x5 days
ST eval recc IDDSI 6
mucolytics and Mucinex, nasal spray added
# Acute hypoxic respiratory insufficiency, resolved
weaned from 4L NC to RA
# Elevated BNP, possible acute CHF from volume overload from necessary IVF for Ca treatment
s/p IV Lasix 1 dose
IVF capped
Echo: with normal EF, mod MS, mild increase gradient of bioprosthetic Aortic valve
# Hypokalemia
replete prn
# Hypoglycemia
# Hx of type 2 DM
in setting of poor oral intake, weight loss and LESVIA while on glipizide sulfonylurea
encourage oral intake
follow accu-checks
A1c is 5.2%a
# Essential HTN
continue Bisoprolol, Nifedipine increased to 90 mg BID, added hydralazine 20 mg BID
Losartan stopped 2/2 LESVIA
# Shingles lower back
Started Valtrex 1000 mg Q8H x7 days
Contact precaution
Appreciate wound care
# Hematuria, mild
Renal US negative
repeat UA showing improvement
# Elevated LFT suspect reactive
improving
follow LFT levels
Holding GLASS CUTTER HAND Statin/Zetia due to elevated LFT
# HLD
Holding GLASS CUTTER HAND Statin/Zetia due to elevated LFT
# GERD
# Barretts esophagus
continue PPI
# Hypomagnesemia
repleted
DVT ppx: SC Heparin
Code: Full
Dispo: SNF
Anticipated Discharge: Within 24 hours
Subjective/Interval History
-
Date of Service: November 11, 2023
Objective Data
-
Labs:
Laboratory Results
11/11/23
06:46
WBC Pending
Hgb Pending
Hct Pending
Plt Count Pending
Sodium Pending
Potassium Pending
Chloride Pending
Carbon Dioxide Pending
BUN Pending
Creatinine Pending
Glucose Pending
Calcium Pending
Total Bilirubin Pending
AST Pending
ALT Pending
Alkaline Phosphatase Pending
Vital Signs:
Vital Signs
Temp Pulse Resp BP Pulse Ox
36.6 C 90 18 148/93 98
11/11/23 07:05 11/11/23 07:05 11/11/23 07:05 11/11/23 07:05 11/11/23 07:05
I&O
11/10/23 11/11/23 11/12/23
06:59 06:59 06:59
Intake Total 250 / 250 1730 / 1730 120 / 120
Output Total 600 / 600 370 / 370 400 / 400
Balance -350 / -350 1360 / 1360 -280 / -280
Review of Systems
-
All other systems: Reviewed and negative
Physical Exam
-
General: Well Developed, Well Nourished, No Apparent Distress, Comfortable and Appears Chronically Ill
HEENT: Normocephalic and Atraumatic
Respiratory: Non Labored Respirations; Negative Accessory Resp Muscle Use
Cardiac: Regular Rhythm and S1/S2
GI: Soft and Nontender
Skin: Lesions (see wound care )
Neuro: Awake and Alert
Psych: Calm and Intact Judgement/Insight (somewhat)
Data Reviewed
-
CT Scan: Report Reviewed by me
Labs: Labs Reviewed by me, Discussed with Physician and Discussed with Family
[2023-11-11 08:34] LABS: % Basophils 0.3 % (0-2); % Eosinophils 0.3 % (0-6); % Immature Granulocytes 2.9 % (0-0.5); % Lymphocytes 6.9 % (20.5-51.1); % Monocytes 10.1 % (1.7-9.3); % Neutrophils 79.5 % (42.2-75.2); Absolute Basophils 0.1 10^3/uL (0-0.2); Absolute Eosinophils 0.1 10^3/uL (0-0.7); Absolute Immature Granulocytes 0.7 10^3/uL (0-0.05); Absolute Lymphocytes 1.6 10^3/uL (1.2-3.4); Absolute Monocytes 2.4 10^3/uL (0.1-0.6); Absolute Neutrophils 18.6 10^3/uL (1.4-6.5); Hematocrit 35.1 % (39.0-52.0); Hemoglobin 12.5 g/dL (13.0-18.0); Mean Corp Hgb Conc. 35.6 g/dL (33.0-37.0); Mean Corpuscular Hgb 27.2 pg (27.0-31.0); Mean Corpuscular Volume 76.5 fL (80.0-94.0); Mean Platelet Volume 10.5 fL (7.4-10.4); Nucleated Red Blood Cells % 0 % (-); Platelet Count 727 10^3/uL (130-400); Red Blood Cell Count 4.59 10^6/uL (4.70-6.10); Red Cell Dist. Width 16.2 % (11.5-14.5); White Blood Cell Count 23.4 10^3/uL (4.8-10.8)
[2023-11-11 08:59] LABS: ALT (SGPT) 82 U/L (0-50); AST (SGOT) 63 U/L (17-59); Albumin 3.4 g/dl (3.5-5.0); Alkaline Phosphatase 135 U/L (38-126); Blood Urea Nitrogen 28 mg/dl (9-20); Calcium 9.6 mg/dl (8.4-10.2); Carbon Dioxide 19 mmol/L (22-30); Chloride 102 mmol/L (98-107); Direct Bilirubin 0.4 mg/dl (0.0-0.4); Estimated Creatinine Clearance 37 ml/min; Glucose 113 mg/dl (70-99); Potassium 3.9 mmol/L (3.5-5.1); Sodium 135 mmol/L (135-145); Total Bilirubin 0.7 mg/dl (0.2-1.3); Total Protein 7.4 g/dl (6.3-8.2); eGFR > 60.00
--- NOTE | 2023-11-11 09:49 | W.PN.NEPH.PH ---
Today's Communication / Plan
-
follow BMP
Assessment/Plan
-
Assessment
LESVIA
CKD3a (1.0)
hypercalcemia
DM2
HTN
volume depletion
loss of appetite
falls
TAVR
Plan
follow BMP, LFTs
check abdominal US
await BMBx reading
steroids per hematology
-
-
Date of Service: November 11, 2023
CC / HPI / ROS
-
Chief Complaint:
LESVIA, hypercalcemia
History of Present Illness:
LESVIA/Cr stable at 1.2
Calcium normal
nonoliguric
BP high
LFTs persistently elevated
on steroids for MM
abx for PNA
valtrex for shingles
Review of Systems:
no cp /sob
Labs
-
Labs:
WBC 23.4 10^3/uL (4.8-10.8) H 11/11/23 06:46
RBC 4.59 10^6/uL (4.70-6.10) L 11/11/23 06:46
Hgb 12.5 g/dL (13.0-18.0) L 11/11/23 06:46
Hct 35.1 % (39.0-52.0) L 11/11/23 06:46
Plt Count 727 10^3/uL (130-400) H 11/11/23 06:46
Sodium 135 mmol/L (135-145) 11/11/23 06:46
Potassium 3.9 mmol/L (3.5-5.1) 11/11/23 06:46
Chloride 102 mmol/L (98-107) 11/11/23 06:46
Carbon Dioxide 19 mmol/L (22-30) L 11/11/23 06:46
BUN 28 mg/dl (9-20) H 11/11/23 06:46
Creatinine 1.2 mg/dL (0.7-1.3) 11/11/23 06:46
eGFR > 60.00 11/11/23 06:46
Glucose 113 mg/dl (70-99) H 11/11/23 06:46
Calcium 9.6 mg/dl (8.4-10.2) 11/11/23 06:46
Phosphorus 3.6 mg/dl (2.5-4.5) 11/01/23 21:36
Fej-D-Cjzghogakwz Pept 4700 pg/ml 11/03/23 02:21
Albumin 3.4 g/dl (3.5-5.0) L 11/11/23 06:46
Physical Exam
-
Vital Signs:
Vital Signs
Temp Pulse Resp BP Pulse Ox
97.9 F 90 18 148/93 98
11/11/23 07:05 11/11/23 07:05 11/11/23 07:05 11/11/23 07:05 11/11/23 07:05
Cardiovascular:: Regular rate and rhythm
Respiratory:: Bilateral: CTA
Lung Excursion:: Normal
Abdomen:: Nontender and Soft
Bowel Sounds:: Normal
Extremity Edema:: None: Bilateral:
[2023-11-11 11:44] LABS: Glucose - Point of Care 200 mg/dl (70-99)
[2023-11-11] MEDS: NOVOLOG FLEXPEN-LOW RESISTANCE 2 UNITS SC (12:32)
--- NOTE | 2023-11-11 15:42 | CM ---
CM reviewed chart, TT to PT to see patient for SNF auth. [facility] will have bed on Sunday. Patient will require insurance authorization. CM will continue to follow for all discharge planing needs.
Plan; [facility] SN[facility] Sunday, will require insurance auth, awaiting updated PT/OT.
Facility NPI# [id number]
NPI# [id number], Dr Armond Hunt
[2023-11-11 15:51] VITALS: BP 105/79; PULSE 75; O2SAT 98
[2023-11-11 16:39] LABS: Glucose - Point of Care 263 mg/dl (70-99)
[2023-11-11] MEDS: NOVOLOG FLEXPEN-LOW RESISTANCE 3 UNITS SC (17:09)
[2023-11-11 21:25] LABS: Glucose - Point of Care 166 mg/dl (70-99)
[2023-11-11 23:15] VITALS: BP 129/73
[2023-11-12] MEDS: VALTREX 1000 MG PO ×3 (06:18→21:09)
[2023-11-12 07:00] VITALS: BP 157/75
[2023-11-12 08:03] LABS: Glucose - Point of Care 115 mg/dl (70-99)
[2023-11-12 08:53] LABS: % Basophils 0.6 % (0-2); % Eosinophils 2.2 % (0-6); % Immature Granulocytes 2.6 % (0-0.5); % Lymphocytes 10.5 % (20.5-51.1); % Monocytes 10.1 % (1.7-9.3); Absolute Basophils 0.1 10^3/uL (0-0.2); Absolute Eosinophils 0.4 10^3/uL (0-0.7); Absolute Immature Granulocytes 0.4 10^3/uL (0-0.05); Absolute Lymphocytes 1.7 10^3/uL (1.2-3.4); Absolute Monocytes 1.6 10^3/uL (0.1-0.6); Absolute Neutrophils 11.9 10^3/uL (1.4-6.5); Hematocrit 34.4 % (39.0-52.0); Hemoglobin 12.2 g/dL (13.0-18.0); Mean Corp Hgb Conc. 35.5 g/dL (33.0-37.0); Mean Corpuscular Hgb 28.2 pg (27.0-31.0); Mean Corpuscular Volume 79.6 fL (80.0-94.0); Mean Platelet Volume 10.4 fL (7.4-10.4); Nucleated Red Blood Cells % 0.1 % (-); Platelet Count 638 10^3/uL (130-400); Red Blood Cell Count 4.32 10^6/uL (4.70-6.10); Red Cell Dist. Width 16.2 % (11.5-14.5)
[2023-11-12 09:14] VITALS: BP 178/83; PULSE 87; O2SAT 97
[2023-11-12 09:16] LABS: ALT (SGPT) 65 U/L (0-50); AST (SGOT) 51 U/L (17-59); Alkaline Phosphatase 119 U/L (38-126); Blood Urea Nitrogen 26 mg/dl (9-20); Calcium 9.1 mg/dl (8.4-10.2); Carbon Dioxide 19 mmol/L (22-30); Chloride 104 mmol/L (98-107); Direct Bilirubin 0.3 mg/dl (0.0-0.4); Estimated Creatinine Clearance 37 ml/min; Glucose 108 mg/dl (70-99); Sodium 135 mmol/L (135-145); Total Bilirubin 0.7 mg/dl (0.2-1.3); Total Protein 6.6 g/dl (6.3-8.2); eGFR > 60.00
[2023-11-12] MEDS: NOVOLOG FLEXPEN-LOW RESISTANCE SC (09:26)
--- NOTE | 2023-11-12 11:00 | W.PN.ONC2 ---
Today's Communication / Plan
-
discharge planning underway
Impression
Impression
monoclonal gammopathy - concerning for myeloma
hypercalcemia
renal insufficiency
pneuomonia
HTN
DM
Plan
Plan
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
-hypercalcemia tx w/ pamidronate 10/31 - IVF
-completed dex 40mg daily x 4 11/09
-follow CBC
-await marrow pathology
-has OP follow up with Dr. Marlow 11/14
Subjective/Objective
Chief Complaint
no new complaints
Subjective
afebrile, no hypoxia or hypotension
Vital Signs:
Vital Signs
Temp Pulse Resp BP Pulse Ox
98.0 F 82 18 157/75 96
11/12/23 07:00 11/12/23 07:00 11/12/23 07:00 11/12/23 07:00 11/12/23 07:00
Lab Results:
Laboratory Data
WBC 16.0 10^3/uL (4.8-10.8) H 11/12/23 06:39
Hgb 12.2 g/dL (13.0-18.0) L 11/12/23 06:39
Plt Count 638 10^3/uL (130-400) H 11/12/23 06:39
PT 13.1 Sec (11.4-14.6) 11/09/23 07:03
INR 1.01 11/09/23 07:03
eGFR > 60.00 11/12/23 06:39
Physical Exam
HEENT: Moist Mucous Membranes; No Jaundice
Cardiology: S1 and S2
Pulmonary: Clear
GI: Soft
Extremities: Pulses Present
Neuro: Non Focal
Review of Systems
Review of Systems
ROS notable for subjective, otherwise negative
[2023-11-12] MEDS: HEPARIN 5000 UNITS SC ×2 (11:30→20:49)
[2023-11-12] MEDS: APRESOLINE 20 MG PO ×2 (11:31→21:09)
[2023-11-12] MEDS: MUCINEX 1200 MG PO ×2 (11:32→20:49)
[2023-11-12] MEDS: ZEBETA 10 MG PO (11:33)
[2023-11-12] MEDS: SODIUM BICARBONATE 650 MG PO ×2 (11:33→20:49)
[2023-11-12] MEDS: PROCARDIA XL (EXTENDED RELEASE) 90 MG PO ×2 (11:33→21:08)
[2023-11-12] MEDS: ASPIR LOW (ENTERIC COATED) 81 MG PO (11:33)
[2023-11-12] MEDS: PROTONIX 40 MG PO (11:34)
[2023-11-12] MEDS: VITAMIN B-12 1000 MCG PO (11:34)
[2023-11-12 11:43] LABS: Glucose - Point of Care 191 mg/dl (70-99)
[2023-11-12] MEDS: NOVOLOG FLEXPEN-LOW RESISTANCE 1 UNITS SC ×2 (11:45→18:35)
--- NOTE | 2023-11-12 14:40 | W.PN.HOSP.TC ---
Today's Communication/Plan
-
dc to SNF if bed/auth available.
Assessment / Plan
Assessment / Plan
Assessment:
LESVIA on CKD stage 3a
- 2/2 dehydration, contrast from PE study, also MM
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
- monitor BMP, SCr down to 1.4 from baseline 1.2
- Renal US negative
- follow Nephrology recs
Acute Hypercalcemia with weakness, due to multiple myeloma
- s/p Pamidronate
- s/p IVF
- Vit D and PTH normal
- Noted significantly elevated urine free Lambda light chain at 5000, IgG level high at 2700, serum lambda light chain also elevated at 2000
- renal on board, Onc on board
- s/p 4 doses of high dose Decadron
- s/p BM biopsy by [facility] 11/08, path pending
Leukocytosis, suspected aspiration pneumonia and now steroid induced
- CT chest: Posterior bibasilar patchy and confluent posterior bibasilar airspace opacity and interstitial thickening. Posterior bibasilar atelectasis versus pneumonia. Peribronchial thickening. Mucous plugging.
- s/p IV Zosyn x 5 days
- ST eval recc IDDSI 6
- mucolytics and Mucinex, nasal spray added
Acute hypoxic respiratory insufficiency, resolved
- weaned from 4L NC to RA
Elevated BNP, possible acute CHF from volume overload from necessary IVF for Ca treatment
- s/p IV Lasix 1 dose
- IVF capped
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
Hypokalemia
- replete prn
Hypoglycemia
Hx of type 2 DM
- in setting of poor oral intake, weight loss and LESVIA while on glipizide sulfonylurea
- encourage oral intake
- follow accu-checks
- A1c is 5.2%a
Essential HTN
- continue Bisoprolol, Nifedipine increased to 90 mg BID, added hydralazine 20 mg BID
- Losartan stopped 2/2 LESVIA
Shingles lower back
- continue Valtrex 1000 mg Q8H, day 05/26
- Contact precaution
- Appreciate wound care
Hematuria, mild
- Renal US negative
- repeat UA showing improvement
Elevated LFT suspect reactive
- improving
- follow LFT levels
- Holding PORTABLE GRINDING MACHINE OPERATOR Statin/Zetia due to elevated LFT
- US: There is cholecystectomy with mild biliary dilatation which may be seen normally in postcholecystectomy patients. otherwise normal.
HLD
- Holding PORTABLE GRINDING MACHINE OPERATOR Statin/Zetia due to elevated LFT
GERD
Barretts esophagus
- continue PPI
Hypomagnesemia
- repleted
DVT ppx: SC Heparin
Code: Full
More than 30 minutes spent in discharge including
Final examination of the patient
Summarizing hospital stay
Instructions for continuing care to all relevant caregivers
Preparation of discharge records, prescriptions, and referral forms
Total time spent (in minutes): 42
Anticipated Discharge: Today
Subjective/Interval History
-
Date of Service: November 12, 2023
no new complaints at present
Objective Data
-
Labs:
Laboratory Results
11/12/23
06:39
WBC 16.0 H
Hgb 12.2 L
Hct 34.4 L
Plt Count 638 H
Sodium 135
Potassium 4.0
Chloride 104
Carbon Dioxide 19 L
BUN 26 H
Creatinine 1.2
Glucose 108 H
Calcium 9.1
Total Bilirubin 0.7
AST 51
ALT 65 H
Alkaline Phosphatase 119
Vital Signs:
Vital Signs
Temp Pulse Resp BP Pulse Ox
98.0 F 77 18 167/84 96
11/12/23 07:00 11/12/23 11:33 11/12/23 07:00 11/12/23 11:33 11/12/23 07:00
I&O
11/11/23 11/12/23 11/13/23
06:59 06:59 06:59
Intake Total 1730 / 1730 1680 / 1680
Output Total 370 / 370 575 / 575
Balance 1360 / 1360 1105 / 1105
Physical Exam
-
General: No Apparent Distress
HEENT: Normocephalic and Atraumatic
Respiratory: Negative Wheezes
Cardiac: Regular Rhythm and S1/S2
GI: Soft
Musculoskeletal: No Edema
Neuro: AO x 3
Psych: Calm
Data Reviewed
-
Total Time Spent with Patient (in minutes): 42
Labs: Labs Reviewed by me
--- NOTE | 2023-11-12 14:53 | W.DS.TRANS ---
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
-
Discharge Instructions:
Discharge Diagnosis/Procedures Acute kidney injury/hypercalcemia/anemia due to
likely multiple myeloma (status post bone marrow
biopsy this admission);
Lower back skin lesion likely due to shingles;
Aspiration pneumonia- treated;
Resolved acute hypoxia
Diet As tolerated,Other diet
Additional Diets Soft and bite-size diet
Activity As tolerated
Driving Restrictions No driving
Blood Work CBC, CMP with SNF in 1 week
Wound Care Barrier ointment to perianal skin twice a day.
Pressure redistributing chair cushion (i.e. Air
chair cushion).
Make appointment with roving department supervisor for toenail
care, evaluate L great toenail.
Instructions:
Stand-Alone Forms:
Changes to Home Medications: Yes
Discharge Medications:
DC Medications w/original date entered in [facility]
atorvastatin 80 mg tablet 80 mg PO DAILY High cholesterol 07/08/18
ezetimibe 10 mg tablet 10 mg PO DAILY High cholesterol 07/08/18
aspirin 81 mg tablet,delayed release 81 mg PO DAILY Blood clot prevention/tx 12/24/18
atenolol 100 mg tablet (Tenormin) 100 mg PO DAILY Blood pressure 12/24/18
multivitamin with folic acid 400 mcg tablet (Tab-A-Inga) 1 tab PO DAILY Supplement 12/24/18
vitamins A,C,V-copl-avzosy 4,296 mcg-226 mg-90 mg capsule (PreserVision AREDS) 2 cap PO DAILY Supplement 06/28/20
cyanocobalamin (vitamin B-12) 1,000 mcg tablet 1,000 mcg PO DAILY Supplement 06/29/20
pantoprazole 40 mg tablet,delayed release 40 mg PO DAILY Gastrointestinal issue 06/29/20
polyethylene glycol 3350 17 gram oral powder packet (Miralax) 17 g PRN Constipation 11/01/23
guaifenesin 600 mg tablet, extended release 12 hr 1,200 mg (2 x 600 mg) PO Q12 #60 tabs 11/12/23
hydralazine 10 mg tablet 20 mg (2 x 10 mg) PO BID #120 tabs 11/12/23
nifedipine 30 mg tablet,extended release 90 mg (3 x 30 mg) PO BID #180 tabs 11/12/23
sodium bicarbonate 650 mg tablet 650 mg PO BID #60 tabs 11/12/23
sodium chloride 0.65 % nasal spray aerosol (Saline Nasal) 2 spray intranasal QIDPRN PRN dry/congested nares #44 mL 11/12/23
valacyclovir 500 mg tablet 1,000 mg (2 x 500 mg) PO Q8H #24 tabs 11/12/23
Home Medication Changes
ARB stopped
Pending Results: No
Total time spent discharging patient (in min): 42
[2023-11-12 15:44] VITALS: BP 158/74
--- NOTE | 2023-11-12 16:01 | W.PN.NEPH.PH ---
Today's Communication / Plan
-
ok for d/c
Assessment/Plan
-
Assessment
LESVIA
CKD3a (1.0)
hypercalcemia
DM2
HTN
volume depletion
loss of appetite
falls
TAVR
Plan
non acte US abd, LFTs are better
await BMBx reading
stable renal function cr 1.2
met acidosis stable on po bicarb
valtrex for shingles
BP labile, adjust meds as needed out pt
ok for d/c
f/u oncology
-
-
Date of Service: November 12, 2023
CC / HPI / ROS
-
Chief Complaint:
LESVIA, hypercalcemia
History of Present Illness:
LESVIA/Cr stable at 1.2
Calcium normal
nonoliguric
BP high
LFTs improving
abx for PNA
valtrex for shingles
Review of Systems:
no cp /sob
Labs
-
Labs:
WBC 16.0 10^3/uL (4.8-10.8) H 11/12/23 06:39
RBC 4.32 10^6/uL (4.70-6.10) L 11/12/23 06:39
Hgb 12.2 g/dL (13.0-18.0) L 11/12/23 06:39
Hct 34.4 % (39.0-52.0) L 11/12/23 06:39
Plt Count 638 10^3/uL (130-400) H 11/12/23 06:39
Sodium 135 mmol/L (135-145) 11/12/23 06:39
Potassium 4.0 mmol/L (3.5-5.1) 11/12/23 06:39
Chloride 104 mmol/L (98-107) 11/12/23 06:39
Carbon Dioxide 19 mmol/L (22-30) L 11/12/23 06:39
BUN 26 mg/dl (9-20) H 11/12/23 06:39
Creatinine 1.2 mg/dL (0.7-1.3) 11/12/23 06:39
eGFR > 60.00 11/12/23 06:39
Glucose 108 mg/dl (70-99) H 11/12/23 06:39
Calcium 9.1 mg/dl (8.4-10.2) 11/12/23 06:39
Phosphorus 3.6 mg/dl (2.5-4.5) 11/01/23 21:36
Qgt-P-Spjowgkmysy Pept 4700 pg/ml 11/03/23 02:21
Albumin 3.0 g/dl (3.5-5.0) L 11/12/23 06:39
Physical Exam
-
Vital Signs:
Vital Signs
Temp Pulse Resp BP Pulse Ox
97.8 F 66 18 158/74 97
11/12/23 15:44 11/12/23 15:44 11/12/23 15:44 11/12/23 15:44 11/12/23 15:44
Cardiovascular:: Regular rate and rhythm
Respiratory:: Bilateral: CTA
Lung Excursion:: Normal
Abdomen:: Nontender and Soft
Extremity Edema:: None: Bilateral:
Han Catheter: No
--- NOTE | 2023-11-12 16:33 | CM ---
CM spoke with Rosie from [facility]- auth approved 7 days skilled level 1, 11/12-11/18, next review 11/18 to [phone] to [facility]. CM provided updated to Erica at [facility]. Call placed to patients daughter, Pam, with
update. Pam's will provide transportation for patient to SNF tomorrow around 11:00 a.m. CM will reviewed IMM with daughter on phone, agreeable to discharge plan. Update to nurse and Hospitalist. CM will continue to follow for all discharge
planning needs.
Plan; [facility] tomorrow, family to transport 11:00 a.m.
[2023-11-12 16:59] LABS: Glucose - Point of Care 166 mg/dl (70-99)
[2023-11-12 21:20] LABS: Glucose - Point of Care 228 mg/dl (70-99)
[2023-11-12 23:07] VITALS: BP 130/75
[2023-11-13] MEDS: VALTREX 1000 MG PO (05:06)
[2023-11-13 07:00] VITALS: BP 155/82
[2023-11-13 07:46] LABS: Glucose - Point of Care 139 mg/dl (70-99)
[2023-11-13] MEDS: NOVOLOG FLEXPEN-LOW RESISTANCE SC (08:17)
[2023-11-13] MEDS: PROTONIX 40 MG PO (08:18)
[2023-11-13] MEDS: SODIUM BICARBONATE 650 MG PO (08:18)
[2023-11-13] MEDS: ZEBETA 10 MG PO (08:18)
[2023-11-13] MEDS: APRESOLINE 20 MG PO (08:19)
[2023-11-13] MEDS: MUCINEX 1200 MG PO (08:19)
[2023-11-13] MEDS: PROCARDIA XL (EXTENDED RELEASE) 90 MG PO (08:20)
[2023-11-13] MEDS: HEPARIN 5000 UNITS SC (08:20)
[2023-11-13] MEDS: ASPIR LOW (ENTERIC COATED) 81 MG PO (08:20)
[2023-11-13] MEDS: VITAMIN B-12 1000 MCG PO (08:37)
--- NOTE | 2023-11-13 09:10 | CM ---
CM reviewed pt with Dr Burden- remains ready for dc
Call with [facility] admissions Erica ([phone])
Confirmed bed availability today
Update provided to pt's dtr
Her spouse will be arriving this morning to transport pt to SNF today, approx 1100
[facility]
Phone- [phone] healthcare center Fax- [phone]
--- NOTE | 2023-11-13 10:09 | W.PN.UPDATE ---
Update Note
Progress Note Update
remains stable for DC to SNF. patient being discharged at this time.
--- NOTE | 2023-11-13 10:13 | PTCARENOTE ---
attempted to call Shannan Bucio multiple times to give report, unable to get through to nursing.
== END 2023-11-13 10:12 | DRG 682 ==
LOC: 4 WEST ACU 21:06
PROVIDERS: Internal Medicine; Nurse Practitioner Family; Physician Assistant; Radiology Vascular & Interventional Radiology; ADMITTING PHYSICIAN Internal Medicine; ATTENDING PHYSICIAN Internal Medicine; CONSULT PHYSICIAN Internal Medicine Hematology & Oncology; CONSULT PHYSICIAN Specialist; EMERGENCY PHYSICIAN Emergency Medicine; FAMILY PHYSICIAN Internal Medicine
PROC: 079T3ZX Drainage of Bone Marrow, Percutaneous Approach, Diagnostic (ICD-10-PCS; 2023-11-09)
PROC: 07DR3ZX Extraction of Iliac Bone Marrow, Percutaneous Approach, Diagnostic (ICD-10-PCS; 2023-11-09)
DX: N17.9 Acute kidney failure, unspecified (principal); J69.0 Pneumonitis due to inhalation of food and vomit; C90.00 Multiple myeloma not having achieved remission; Z68.1 Body mass index [BMI] 19.9 or less, adult; E11.649 Type 2 diabetes mellitus with hypoglycemia without coma; E11.22 Type 2 diabetes mellitus with diabetic chronic kidney disease; E11.65 Type 2 diabetes mellitus with hyperglycemia; I12.9 Hypertensive chronic kidney disease with stage 1 through stage 4 chronic kidney disease, or unspecified chronic kidney disease; N18.31 Chronic kidney disease, stage 3a; Z95.3 Presence of xenogenic heart valve; I44.39 Other atrioventricular block; E83.52 Hypercalcemia; E86.0 Dehydration; E78.00 Pure hypercholesterolemia, unspecified; E83.42 Hypomagnesemia; B02.9 Zoster without complications; E87.6 Hypokalemia; K21.9 Gastro-esophageal reflux disease without esophagitis; K22.70 Barrett's esophagus without dysplasia; R63.0 Anorexia; R09.02 Hypoxemia; R06.89 Other abnormalities of breathing; R31.29 Other microscopic hematuria; R79.89 Other specified abnormal findings of blood chemistry; W19.XXXA Unspecified fall, initial encounter; Z79.82 Long term (current) use of aspirin; Z79.84 Long term (current) use of oral hypoglycemic drugs; Z79.899 Other long term (current) drug therapy; Z87.891 Personal history of nicotine dependence; Z87.19 Personal history of other diseases of the digestive system
CPT/HCPCS: 88305; 88311; 88312; 36600; 38222; 51701; 70450; 71045; 71046; 71275; 74230; 76700; 76770; 77012; 80053; 81003; 81015; 82248; 82306; 82550; 82652; 82784; 82805; 82947; 82962; 83036; 83519; 83521; 83605; 83735; 83880; 83970; 84100; 84145; 84155; 84156; 84165; 84443; 84484; 85025; 85027; 85379; 85610; 86334; 86335; 87040; 87502; 87811; 88313; 92526; 92610; 92611; 93005; 93306; 94640; 96374; 97110; 97116; 97163; 97167; 97530; 97535; 99285; J2430; Q9967